=== PATIENT | female | born 1950 | race Caucasian/White ===

== ENCOUNTER 2023-11-13 14:53 | Outpatient (OUT) | payer MEDICARE, OTHER, SELFPAY ==
[2023-11-13 15:52] LABS: Basophils Percent Auto 0.8 % (0.2-2.0); Eosinophils Absolute Auto 0.1 10^3/uL (0.0-0.7); Eosinophils Percent Auto 2.3 % (0.9-7.0); Hematocrit 36.1 % (36.0-48.0); Hemoglobin 11.8 g/dL (12.0-16.0); Immature Granulocytes Abs Auto 0.04 10^3/uL (0.00-0.03); Immature Granulocytes Pct Auto 0.8 % (0.0-0.5); Lymphocytes Absolute Auto 1.2 10^3/uL (1.2-3.8); Lymphocytes Percent Auto 23.6 % (20.5-60.0); Mean Corpuscular HGB Conc 32.7 g/dL (29.9-35.2); Mean Corpuscular Hemoglobin 35.4 pg (26.7-34.0); Mean Corpuscular Volume 108.4 fL (81.0-99.0); Mean Platelet Volume 9.7 fL (9.5-13.5); Monocytes Absolute Auto 0.3 10^3/uL (0.3-0.8); Monocytes Percent Auto 6.6 % (1.7-12.0); Neutrophils Absolute Auto 3.2 10^3/uL (1.4-6.5); Neutrophils Percent Auto 65.9 % (43.0-75.0); Platelet Count 206 10^3/uL (150-450); Red Cell Distribution Width 16.7 % (11.0-15.0); White Blood Count 4.9 10^3/uL (4.0-11.0)
[2023-11-13 16:18] LABS: Red Blood Count 3.33 10^6/uL (4.20-5.40)
[2023-11-13 16:27] LABS: Estimated Average Glucose 97 mg/dL
[2023-11-13 16:46] LABS: Alanine Aminotransferase 7 U/L (14-59); Albumin Globulin Ratio 0.7; Albumin Level 2.7 g/dL (3.4-5.0); Alkaline Phosphatase 112 U/L (46-116); Anion Gap 13.3; Aspartate Amino Transferase 15 U/L (15-37); BUN Creatinine Ratio 20.5; Bilirubin Total 0.3 mg/dL (0.2-1.0); Calcium 8.5 mg/dL (8.5-10.1); Carbon Dioxide 27.3 mmol/L (21.0-32.0); Chloride 109 mmol/L (98-107); Chol HDL Ratio 3.1; Cholesterol 165 mg/dL (<=200); Estimated GFR (African America >60 (>=60); Estimated GFR (Non-African Ame >60 (>=60); Free T3 2.05 pg/mL (2.18-3.98); Globulin 3.7 g/dL; Glucose 110 mg/dL (74-106); HDL Cholesterol 54 mg/dL (40-60); Potassium 3.6 mmol/L (3.5-5.1); Sodium 146 mmol/L (136-145); Thyroid Stimulating Hormone 1.843 uIU/mL (0.358-3.740); Total Protein 6.4 g/dL (6.4-8.2); Triglycerides 193 mg/dL (<=150); VLDL CHOLESTEROL 38.6 mg/dL
[2023-11-15 11:10] LABS: Insulin 23.7 uIU/mL (2.6-24.9)
== END 2023-11-13 14:54 | disposition home or self-care (01) ==
LOC: LAB 15:05
PROVIDERS: PCP Nurse Practitioner Family; Visit Provider Nurse Practitioner Family
DX: E78.5 Hyperlipidemia, unspecified (principal); E11.9 Type 2 diabetes mellitus without complications; Z79.899 Other long term (current) drug therapy; Z12.11 Encounter for screening for malignant neoplasm of colon; D64.9 Anemia, unspecified; R53.83 Other fatigue; E55.9 Vitamin D deficiency, unspecified
CPT/HCPCS: 36415; 80053; 80061; 82306; 83036; 83525; 83540; 84436; 84443; 84481; 85025

== ENCOUNTER 2023-11-18 14:02 | Outpatient (OUT) | payer MEDICARE, OTHER, SELFPAY ==
--- NOTE | 2023-11-18 14:17 | CT_ITS ---
The [address] [address] Patient Name: DONNY JURADO MRN: [id number] date: 1950 Sex: F Assigned Patient Location: CT Current Patient Location: Accession/Order Number: [id number] Exam Date: 11/18/2023 14:14 Report Date: 11/19/2023 08:56 At the request of: GLORIA QUINTERO Procedure: CT lung screening low-dose EXAMINATION: CT lung screening low-dose HISTORY: Smoker COMPARISON: CT LUNG CANCER SCREENING 08/01/2020 TECHNIQUE: Axial, Coronal, and Sagittal images were created without the administration of IV contrast material. Dose reduction techniques were achieved by using automated exposure control and/or adjustment of mA and/or kV according to patient size and/or use of iterative reconstruction technique. FINDINGS: LUNGS: A few tiny pleural-based nodules scattered bilaterally; unchanged. No suspicious nodules, infiltrates, or significant chronic interstitial changes. PLEURA: No mass, effusion, or pneumothorax. VASCULATURE: No abnormality. NYLA: No mass or pathologic adenopathy. MEDIASTINUM: No mass or pathologic adenopathy. CARDIAC: No enlargement, pericardial thickening, or pericardial effusion. AORTA: No aneurysm or dissection. CHEST WALL: No mass or axillary adenopathy BONES: No bone lesion or fracture. LIMITED ABDOMEN: No suspicious findings. Limited images of the upper abdomen. OTHER: Negative. CT/CT lung screening low-dose IMPRESSION: 1. Lung-RADS 2- Benign Appearance or Behavior. Nodules with a very low likelihood of becoming a clinically active cancer due to size or lack of growth. Follow-up CT Chest in 1 year. Electronically authenticated by: RUBIA WILSON Date: 11/19/2023 08:56
--- NOTE | 2023-11-18 14:32 | XR_ITS ---
[address] [address] Patient Name: DONNY JURADO MRN: [id number] date: 1950 Sex: F Assigned Patient Location: CT Current Patient Location: CT Accession/Order Number: [id number] Exam Date: 11/18/2023 14:18 Report Date: 11/18/2023 15:24 At the request of: GLORIA QUINTERO Procedure: XR DEXA axial skeleton EXAMINATION: XR DEXA axial skeleton, 11/18/2023 2:18 PM EST HISTORY: Age Related Osteoporosis M81.0 COMPARISON: None. TECHNIQUE: Dual-energy X-ray absorptiometry (DEXA) bone density study performed for the axial skeleton. HISTORY: Age Related Osteoporosis M81.0 FINDINGS: Bone mineral density AP spine L1-L4 measures 0.775 g/sq cm. T score -3.4. WHO classification: Osteoporosis Lowest bone mineral density is in the right femoral trochanter measuring 0.422 g/sq cm. T score -3.7. WHO classification: Osteoporosis XR/XR DEXA axial skeleton IMPRESSION: Osteoporosis. High fracture risk Electronically authenticated by: ERYN PAGAN Date: 11/18/2023 15:24
== END 2023-11-18 14:03 | disposition home or self-care (01) ==
LOC: CT 14:02
PROVIDERS: PCP Nurse Practitioner Family; Visit Provider Nurse Practitioner Family
DX: M81.0 Age-related osteoporosis without current pathological fracture (principal); F17.200 Nicotine dependence, unspecified, uncomplicated
CPT/HCPCS: 71271; 77080

== ENCOUNTER 2023-11-26 13:46 | Outpatient (RCR) | payer MEDICARE, SELFPAY | END 2024-01-24 17:13 | disposition home or self-care (01) | LOC: PT 13:46 | PROVIDERS: PCP Nurse Practitioner Family; Visit Provider Nurse Practitioner Family | DX: M25.562 Pain in left knee (principal); M17.12 Unilateral primary osteoarthritis, left knee | CPT/HCPCS: 97110; 97112; 97161 ==

== ENCOUNTER 2024-08-02 15:36 | Emergency (ER) | payer MEDICARE, SELFPAY ==
[2024-08-02 15:40] VITALS: BP 186/100; PULSE 101; TEMP 36.5; O2SAT 98; BMI 19.1
--- OUTSIDE RECORDS SUMMARY | 2024-08-02 15:46 | XMS_ITS | CCD ---
Author Organization [facility] ion Partnership [facility] Care Team Providers Care Ranch Manager Name Role Phone ROBBY QUINTEROELA Admitting Unavailable INGRID, GLORIA Attending Unavailable INGRID, GLORIA Primary Care Unavailable INGRID, GLORIA Consulting Unavailable INGRID, GLORIA Admitting Unavailable INGRID, GLORIA Attending Unavailable INGRID, GLORIA Primary Care Unavailable INGRID, GLORIA Consulting Unavailable INGRID, GLORIA Admitting Unavailable INGRID, GLORIA Attending Unavailable INGRID, GLORIA Primary Care Unavailable INGRID, GLORIA Consulting Unavailable APLING, RUSTY B Attending Unavailable APLING, RUSTY Calle Referring Unavailable APLING, RUSTY Calle Attending Unavailable Problems Active Problems Problem Classification Problem Date Documented Da te Episodic/Chronic Deficiency and other anemia (1 source) Anemia, unspecified; Translations: [ANEMIA UNSPECIFIED] Onset: 10-17-2022 Episodic Diabetes mellitus without complication (1 source) Other abnormal glucose; Translations: [OTHER ABNORMAL GLUCOSE] Onset: 10-17-2022 Episodic Disorders of lipid metabolism (4 sources) Hyperlipidemia, unspecified; Translations: [HYPERLIPIDEMIA UNSPECIFIED] Onset: 10-12-2022 Chronic Fluid and electrolyte disorders (4 sources) Hypokalemia; Translations: [HYPOKALEMIA] Onset: 11-05-2022 Episodic Other endocrine disorders (1 source) Diabetes insipidus; Translations: [DIABETES INSIPIDUS] Onset: 10-17-2022 Chronic Unclassified (3 sources) CONTACT W/AND (SUSP) EXPOS COVID-19; Translations: [CONTACT W/AND (SUSP) EXPOS COVID-19] Onset: 11-28-2022 Past or Other Problems Problem Classification Problem Date Documented Da te Episodic/Chronic Unclassified (1 source) CONTACT W/AND (SUSP) EXPOS COVID-19; Translations: [CONTACT W/AND (SUSP) EXPOS COVID-19] Onset: 11-27-2022 Results Test Name Value Interpretation Reference Range Facility Covid-19 PCR (CVDTBH)on SARS-CoV-2 (COVID-19) RNA COLT+probe Ql (Unsp spec) Not detected Normal NOT DETECTED [facility] Comment on above: Result Comment: When diagnostic testing is negative, the possibility of a false negative should be considered in the context of a patient's recent exposures and the presence of clinical signs and symptoms consistent with SARS-CoV-2. This test is not yet approved or cleared by the [place] FDA. When there are no FDA-approved or cleared tests available, and other criteria are met, FDA can make tests available under an emergency access mechanism called an Emergency Use Authorization (EUA). The EUA for this test is supported by the Department Store Salesperson of Health and Human Service's declaration that circumstances exist to justify the emergency use of in vitro diagnostics for the detection and/or diagnosis of the virus that causes COVID-19. This EUA will remain in effect for the duration of the COVID-19 declaration justifying emergency of IVDs, unless it is terminated or revoked by the FDA (after which the test may no longer be used). Performed By: #### C VDTB #### [facility] [address] [place] [address] Dr. Concetta Milligan PROF 14(COMP METB)on 023 Albumin [Mass/Vol] 3.5 g/dL Normal 3.4-5.0 [facility] Comment on above: Performed By: #### C MP #### [facility] [address] [place] [address] Dr. Concetta Milligan Albumin/Globulin [Mass ratio] 0.9 {ratio} Normal [facility] Comment on above: Performed By: #### C MP #### [facility] [address] [place] [address] Dr. Concetta Milligan ALP [Catalytic activity/Vol] 130 U/L Critically high 46-116 [facility] Comment on above: Performed By: #### C MP #### [facility] [address] [place] [address] Dr. Concetta Milligan ALT [Catalytic activity/Vol] 13 U/L Critically low 14-59 [facility] Comment on above: Performed By: #### C MP #### [facility] [address] [address] [address] Concetta Milligan Anion gap [Moles/Vol] 15.8 mmol/L Normal [facility] Comment on above: Performed By: #### C MP #### [facility] [address] [address] [address] Concetta Milligan AST [Catalytic activity/Vol] 22 U/L Normal 15-37 [facility] Comment on above: Performed By: #### C MP #### [facility] [address] [address] [address] Concetta Milligan Bilirubin [Mass/Vol] 0.5 mg/dL Normal 0.2-1.0 [facility] Comment on above: Performed By: #### C MP #### [facility] [address] [address] [address] Concetta Milligan Calcium [Mass/Vol] 8.7 mg/dL Normal 8.5-10.1 [facility] Comment on above: Performed By: #### C MP #### [facility] [address] [address] [address] Concetta Milligan Chloride [Moles/Vol] 102 mmol/L Normal 98-107 [facility] Comment on above: Performed By: #### C MP #### [facility] [address] [address] [address] Concetta Milligan CO2 [Moles/Vol] 26.6 mmol/L Normal 21.0-32.0 [facility] Comment on above: Performed By: #### C MP #### [facility] [address] [address] [address] Concetta Milligan Creatinine [Mass/Vol] 0.87 mg/dL Normal 0.55-1.02 [facility] Comment on above: Performed By: #### C MP #### [facility] [address] [place] [address] Dr. Concetta Milligan EGFR-AF MALAYSIAN >60 Normal >=60 [facility] Comment on above: Performed By: #### C MP #### [facility] [address] [address] [address] Concetta Milligan EGFR-NON AF MALAYSIAN >60 Normal >=60 [facility] Comment on above: Performed By: #### C MP #### [facility] [address] [address] [address] Concetta Milligan Globulin (S) [Mass/Vol] 3.8 g/dL Normal [facility] Comment on above: Performed By: #### C MP #### [facility] [address] [address] [address] Concetta Milligan Glucose [Mass/Vol] 124 mg/dL Critically high 74-106 [facility] Comment on above: Performed By: #### C MP #### [facility] [address] [address] [address] Concetta Milligan Potassium [Moles/Vol] 3.4 mmol/L Critically low 3.5-5.1 [facility] Comment on above: Performed By: #### C MP #### [facility] [address] [address] [address] Concetta Milligan Protein [Mass/Vol] 7.3 g/dL Normal 6.4-8.2 [facility] Comment on above: Performed By: #### C MP #### [facility] [address] [address] [address] Concetta Milligan Sodium [Moles/Vol] 141 mmol/L Normal 136-145 [facility] Comment on above: Performed By: #### C MP #### [facility] [address] [address] [address] Concetta Milligan Urea nitrogen [Mass/Vol] 15.0 mg/dL Normal 7.0-18.0 [facility] Comment on above: Performed By: #### C MP #### [facility] [address] [address] [address] Concetta Milligan Urea nitrogen/Creatinine [Mass ratio] 17.2 mg/mg Normal [facility] Comment on above: Performed By: #### C MP #### [facility] [address] [address] [address] Concetta Milligan INSULINon 10-13-2022 Insulin 70.6 uIU/mL Critically high 2.6-24.9 [facility] Comment on above: Performed By: #### I NSULIN #### [facility] [address] [place] [address] Dr. Concetta Milligan CBC AUTO DIFFon 10-12-2022 BASO # 0.1 103/ul Normal 0.0-0.1 [facility] Comment on above: Performed By: #### C BC #### [facility] [address] [place] [address] Dr. Concetta Milligan Basophils/100 WBC (Bld) 0.7 % Normal 0.2-2.0 [facility] Comment on above: Performed By: #### C BC #### [facility] [address] [place] [address] Dr. Concetta Milligan EO # 0.1 103/ul Normal 0.0-0.7 [facility] Comment on above: Performed By: #### C BC #### [facility] [address] [place] [address] Dr. Concetta Milligan Eosinophils/100 WBC (Bld) 2.0 % Normal 0.9-7.0 [facility] Comment on above: Performed By: #### C BC #### [facility] [address] [place] [address] Dr. Concetta Milligan Erythrocyte distribution width (RBC) [Ratio] 16.1 % Critically high 11.0-15.0 [facility] Comment on above: Performed By: #### C BC #### [facility] [address] [place] [address] Dr. Concetta Milligan Hematocrit (Bld) [Volume fraction] 40.8 % Normal 36.0-48.0 [facility] Comment on above: Performed By: #### C BC #### [facility] [address] [place] [address] Dr. Concetta Milligan Hemoglobin (Bld) [Mass/Vol] 15.1 g/dL Normal 12.0-16.0 [facility] Comment on above: Performed By: #### C BC #### [facility] [address] [place] [address] Dr. Concetta Milligan IG # 0.02 10e3/ul Normal 0.00-0.03 [facility] Comment on above: Performed By: #### C BC #### [facility] [address] [place] [address] Dr. Concetta Milligan IG % 0.3 % Normal 0.0-0.5 [facility] Comment on above: Performed By: #### C BC #### [facility] [address] [place] [address] Dr. Concetta Milligan LYMPH # 1.5 103/ul Normal 1.2-3.8 [facility] Comment on above: Performed By: #### C BC #### [facility] [address] [place] [address] Dr. Concetta Milligan Lymphocytes/100 WBC (Bld) 22.0 % Normal 20.5-60.0 [facility] Comment on above: Performed By: #### C BC #### [facility] [address] [place] [address] Dr. Concetta Milligan MANUAL DIFF REQ NO Normal [facility] Comment on above: Performed By: #### C BC #### [facility] [address] [place] [address] Dr. Concetta Milligan MCH (RBC) [Entitic mass] 32.1 pg Normal 26.7-34.0 [facility] Comment on above: Performed By: #### C BC #### [facility] [address] [place] [address] Dr. Concetta Milligan MCHC (RBC) [Mass/Vol] 37.0 g/dL Critically high 29.9-35.2 [facility] Comment on above: Performed By: #### C BC #### [facility] [address] [place] [address] Dr. Concetta Milligan MCV (RBC) [Entitic vol] 86.6 fL Normal 81.0-99.0 [facility] Comment on above: Performed By: #### C BC #### [facility] [address] [place] [address] Dr. Concetta Milligan MONO # 0.4 103/ul Normal 0.3-0.8 [facility] Comment on above: Performed By: #### C BC #### [facility] [address] [place] [address] Dr. Concetta Milligan Monocytes/100 WBC (Bld) 5.8 % Normal 1.7-12.0 [facility] Comment on above: Performed By: #### C BC #### [facility] [address] [place] [address] Dr. Concetta Milligan NEUT # 4.8 103/ul Normal 1.4-6.5 [facility] Comment on above: Performed By: #### C BC #### [facility] [address] [place] [address] Dr. Concetta Milligan Neutrophils/100 WBC (Bld) 69.2 % Normal 43.0-75.0 [facility] Comment on above: Performed By: #### C BC #### [facility] [address] [place] [address] Dr. Concetta Milligan Platelet mean volume (Bld) [Entitic vol] 8.7 fL Critically low 9.5-13.5 [facility] Comment on above: Performed By: #### C BC #### [facility] [address] [place] [address] Dr. Concetta Milligan PLT 204 103/ul Normal 150-450 [facility] Comment on above: Performed By: #### C BC #### [facility] [address] [place] [address] Dr. Concetta Milligan RBC 4.71 106/ul Normal 4.20-5.40 [facility] Comment on above: Performed By: #### C BC #### [facility] [address] [place] [address] Dr. Concetta Milligan WBC 6.9 103/ul Normal 4.0-11.0 [facility] Comment on above: Performed By: #### C BC #### [facility] [address] [place] [address] Dr. Concetta Milligan FREE THYROXINE INDEX T7on FTI 2.24 Normal 1.30-4.50 [facility] Comment on above: Performed By: #### T SH, T7, CMP, LIPID #### [facility] [address] [address] [address] Concetta Milligan T3U 35.0 % Normal 30.0-39.0 [facility] Comment on above: Performed By: #### T SH, T7, CMP, LIPID #### [facility] [address] [address] [address] Concetta Milligan T4 [Mass/Vol] 6.40 ug/dL Normal 4.80-13.90 [facility] Comment on above: Performed By: #### T SH, T7, CMP, LIPID #### [facility] [address] [address] [address] Concetta Milligan GLYCOHEMOGLOBIN A1Con 2022 ADA RECOMMENDATION SEE BELOW Normal [facility] Comment on above: Result Comment: ADA RECOMMENDED LIMIT 4.0 - 6.0 ADA THERAPEUTIC TARGET < 7.0 ACTION SUGGESTED > 7.0 Performed By: #### A 1C #### [facility] [address] [place] [address] Dr. Concetta Milligan Glucose [Mass/Vol] 114 mg/dL Normal [facility] Comment on above: Performed By: #### A 1C #### [facility] [address] [place] [address] Dr. Concetta Milligan HbA1c (Bld) [Mass fraction] 5.6 % Normal 4.5-6.2 [facility] Comment on above: Performed By: #### A 1C #### [facility] [address] [address] [address] Concetta Milligan IRONon 10-12-2022 Iron [Mass/Vol] 111.0 ug/dL Normal 50.0-170.0 [facility] Comment on above: Performed By: #### I MLAA #### [facility] [address] [place] [address] Dr. Concetta Milligan LIPID PROFILEon 10-12-2022 CHOL-HDL RATIO NORM SEE BELOW Normal [facility] Comment on above: Result Comment: 3.3 - 4.4 LOW RISK 4.4 - 7.1 AVERAGE RISK 7.1 - 11.0 MODERATE RISK >11.0 HIGH RISK Performed By: #### T SH, T7, CMP, LIPID #### [facility] [address] [address] [address] Concetta Milligan Cholesterol [Mass/Vol] 153 mg/dL Normal <=200 [facility] Comment on above: Performed By: #### T SH, T7, CMP, LIPID #### [facility] [address] [address] [address] Concetta Milligan Cholesterol in HDL [Mass/Vol] 51 mg/dL Normal 40-60 [facility] Comment on above: Performed By: #### T SH, T7, CMP, LIPID #### [facility] [address] [address] [address] Concetta Milligan Cholesterol in LDL [Mass/Vol] 76.2 mg/dL Normal [facility] Comment on above: Performed By: #### T SH, T7, CMP, LIPID #### [facility] [address] [address] [address] Concetta Milligan Cholesterol.total/Cho lesterol in HDL [Mass ratio] 3.0 {ratio} Normal [facility] Comment on above: Performed By: #### T SH, T7, CMP, LIPID #### [facility] [address] [place] [address] Dr. Concetta Milligan HDL NORMAL > or = 60 mg/dl - LO W CARDIOVASCULAR RISK <40 mg/dl - HIGH CARDIOVASCULAR RISK Normal [facility] Comment on above: Performed By: #### T SH, T7, CMP, LIPID #### [facility] [address] [place] [address] Dr. Concetta Milligan LDL CALC NORMAL SEE BELOW Normal [facility] Comment on above: Result Comment: <100 mg/dl OPTIMAL 100 - 129 mg/dl NEAR OR ABOVE OPTIMAL 130 - 159 mg/dl BORDERLINE HIGH 160 - 189 mg/dl HIGH >190 mg/dl VERY HIGH Performed By: #### T SH, T7, CMP, LIPID #### [facility] [address] [address] [address] Concetta Milligan Triglyceride [Mass/Vol] 129 mg/dL Normal <=150 [facility] Comment on above: Performed By: #### T SH, T7, CMP, LIPID #### [facility] [address] [address] [address] Concetta Milligan VLDL CALC 25.8 mg/dL Normal [facility] Comment on above: Performed By: #### T SH, T7, CMP, LIPID #### [facility] [address] [address] [address] Concetta Milligan PROF 14(COMP METB)on 023 Albumin [Mass/Vol] 3.4 g/dL Normal 3.4-5.0 [facility] Comment on above: Performed By: #### T SH, T7, CMP, LIPID #### [facility] [address] [place] [address] Dr. Concetta Milligan Albumin/Globulin [Mass ratio] 0.9 {ratio} Normal [facility] Comment on above: Performed By: #### T SH, T7, CMP, LIPID #### [facility] [address] [place] [address] Dr. Concetta Milligan ALP [Catalytic activity/Vol] 128 U/L Critically high 46-116 [facility] Comment on above: Performed By: #### T SH, T7, CMP, LIPID #### [facility] [address] [address] [address] Concetta Milligan ALT [Catalytic activity/Vol] 12 U/L Critically low 14-59 [facility] Comment on above: Performed By: #### T SH, T7, CMP, LIPID #### [facility] [address] [place] [address] Dr. Concetta Milligan Anion gap [Moles/Vol] 11.2 mmol/L Normal [facility] Comment on above: Performed By: #### T SH, T7, CMP, LIPID #### [facility] [address] [place] [address] Dr. Concetta Milligan AST [Catalytic activity/Vol] 15 U/L Normal 15-37 [facility] Comment on above: Performed By: #### T SH, T7, CMP, LIPID #### [facility] [address] [address] [address] Concetta Milligan Bilirubin [Mass/Vol] 0.4 mg/dL Normal 0.2-1.0 [facility] Comment on above: Performed By: #### T SH, T7, CMP, LIPID #### [facility] [address] [address] [address] Concetta Milligan Calcium [Mass/Vol] 8.5 mg/dL Normal 8.5-10.1 [facility] Comment on above: Performed By: #### T SH, T7, CMP, LIPID #### [facility] [address] [address] [address] Concetta Milligan Chloride [Moles/Vol] 103 mmol/L Normal 98-107 [facility] Comment on above: Performed By: #### T SH, T7, CMP, LIPID #### [facility] [address] [address] [address] Concetta Milligan CO2 [Moles/Vol] 29.9 mmol/L Normal 21.0-32.0 [facility] Comment on above: Performed By: #### T SH, T7, CMP, LIPID #### [facility] [address] [address] [address] Concetta Milligan Creatinine [Mass/Vol] 0.77 mg/dL Normal 0.55-1.02 [facility] Comment on above: Performed By: #### T SH, T7, CMP, LIPID #### [facility] [address] [address] [address] Concetta Milligan EGFR-AF MALAYSIAN >60 Normal >=60 [facility] Comment on above: Performed By: #### T SH, T7, CMP, LIPID #### [facility] [address] [address] [address] Concetta Milligan EGFR-NON AF MALAYSIAN >60 Normal >=60 [facility] Comment on above: Performed By: #### T SH, T7, CMP, LIPID #### [facility] [address] [address] [address] Concetta Milligan Globulin (S) [Mass/Vol] 3.8 g/dL Normal [facility] Comment on above: Performed By: #### T SH, T7, CMP, LIPID #### [facility] [address] [address] [address] Concetta Milligan Glucose [Mass/Vol] 116 mg/dL Critically high 74-106 [facility] Comment on above: Performed By: #### T SH, T7, CMP, LIPID #### [facility] [address] [address] [address] Concetta Milligan Potassium [Moles/Vol] 3.1 mmol/L Critically low 3.5-5.1 [facility] Comment on above: Performed By: #### T SH, T7, CMP, LIPID #### [facility] [address] [address] [address] Concetta Milligan Protein [Mass/Vol] 7.2 g/dL Normal 6.4-8.2 [facility] Comment on above: Performed By: #### T SH, T7, CMP, LIPID #### [facility] [address] [address] [address] Concetta Milligan Sodium [Moles/Vol] 141 mmol/L Normal 136-145 [facility] Comment on above: Performed By: #### T SH, T7, CMP, LIPID #### [facility] [address] [address] [address] Concetta Milligan Urea nitrogen [Mass/Vol] 14.0 mg/dL Normal 7.0-18.0 [facility] Comment on above: Performed By: #### T SH, T7, CMP, LIPID #### [facility] [address] [place] [address] Dr. Concetta Milligan Urea nitrogen/Creatinine [Mass ratio] 18.2 mg/mg Normal [facility] Comment on above: Performed By: #### T SH, T7, CMP, LIPID #### [facility] [address] [place] [address] Dr. Concetta Milligan TSHon 10-12-2022 TSH 1.144 uIU/mL Normal 0.358-3.740 [facility] Comment on above: Performed By: #### T SH, T7, CMP, LIPID #### [facility] [address] [address] [address] Concetta Milligan Coding Summary.on 03-15-2020 Coding Summary. CODING DATE: 03/15/2020 FINAL [facility] STATUS: Home (Routine DC) PAYOR: Medicare ADMIT DX: REASON FOR VISIT DX: R31.0 Gross hematuria FINAL DX: PRINCIPAL: R31.0 Gross hematuria SECONDARY: PYMT PROC APC STAT DESCRIPTION DOCTOR NAME DATE NOTE: The code number assigned matches the documented diagnosis and / or procedure in the patient's chart. However, the narrative phrase printed from the coding software may appear abbreviated, or result in slightly different terminology. Coded By: Ivette Verma Date Saved: 03/15/2020 07:39 am [facility] Coding Summary.on 03-09-2020 Coding Summary. CODING DATE: 03/09/2020 FINAL [facility] STATUS: Home (Routine DC) PAYOR: Medicare APC DESCRIPTION 5372 Level 2 Urology and Related Services ADMIT DX: REASON FOR VISIT DX: R31.0 Gross hematuria FINAL DX: PRINCIPAL: R31.0 Gross hematuria SECONDARY: N39.41 Urge incontinence E11.9 Type 2 diabetes mellitus without complications I10 Essential (primary) hypertension E78.5 Hyperlipidemia, unspecified PYMT PROC APC STAT DESCRIPTION DOCTOR NAME DATE NOTE: The code number assigned matches the documented diagnosis and / or procedure in the patient's chart. However, the narrative phrase printed from the coding software may appear abbreviated, or result in slightly different terminology. Coded By: Marah Carmona Date Saved: 03/09/2020 10:40 am [facility] Consent for Treatmenton 02-21 Consent for Treatment [id number] .00CD:127 [facility] Discharge Instructionson Discharge Instructions [id number]# 1.00CD:127 [facility] History and Physicalon 03-08 History and Physical [id number]# 1.00CD:127 [facility] Inpatient Patient Summaryon 03-08-2020 Inpatient Patient Summary [address] [address] Clinical Summary Person Information Name: DONNY JURADO Age: 69 Years : 1950 Sex: Female PCP: NIURKA BEGUM MD Marital Status: Race: White Ethnicity: Non- or Language: Portuguese Visit Id: Visit Reason: GROSS HEMATURIA Speciality: Acuity: Enc Type: Outpatient Med Service: Surgery Arrival: 03/08/2020 12:23:46 Discharge: Dispo Type: Address: [address] [place] [id number] Provider Notes: Diagnosis: Colovesical fistula; Gross hematuria Problems Active Urge incontinence Gross hematuria Hyperlipidemia Hypertension Glaucoma Type 2 diabetes mellitus Arthritis Smoking Status: Functional Status: Sensory Deficits: History of Falls: Mobility Assistance Prior to Admission: ADLs: Current Level of Assistance for Self-Care/Mobility: Cognitive Status: Allergies No Known Allergies Laboratory or Other Results This Visit (last charted value for your 03/08/2020 visit) No Laboratory or Other Results This Visit Measurements: Height: 166 cm Weight: Blood Pressure: Not Valued / Not Valued BMI: Procedures No Procedures Documented Immunizations No Immunizations Documented This Visit Final Med List: atorvastatin (atorvastatin 40 mg Tab) 1 Tablets By Mouth every day. carvedilol 12.5 Milligram By Mouth 2 times a day. ciprofloxacin (Cipro 500 mg Tab) 1 Tablets By Mouth. one tab the day prior to procdure, and one tab after procedure completed. eszopiclone (eszopiclone 1 mg Tab) 1 Tablets By Mouth As Directed as needed for insomnia. insulin detemir (Levemir) 35 Units Subcutaneous once a day (in the morning). losartan (losartan 100 mg Tab) 1 Tablets By Mouth every day. timolol one gtt. Left eye every day. Care Team Members: Attending Physician: Shorty Stark MD Consulting Physician: Referring Physician: Shorty Stark MD Follow up: With: Address: When: Shorty Stark [address] [place] [address], [facility] [address], [address] [address] Business (1) , only if needed Patient Education Information: Diverticulitis [facility] IntraOperative Documentson 0 03-08-2020 IntraOperative Documents [id number]# 1.00CD:[address] [facility] IntraOperative Documents [id number]# 1.00CD:[address] [facility] Main OR Intraoperative Recor don 03-08-2020 Main OR Intraoperative Record IntraOp Document Type FTURO Summary Primary Physician: Shorty Stark MD Finalized Date/Time: 03/08/20 12:52:53 Pt. Name: DONNY JURADO Emily Nix/Sex: 1950 Female Med Rec #: [id number] Physician: Shorty Stark MD Financial #: [id number] Pt. Type: O Room/Bed: / Admit/Disch: 03/08/20 12:23:46 - Institution: Case Times FTURO Entry 1 Patient Times In Room 03/08/20 12:43:00 Out Room 03/08/20 12:57:00 Procedure Times Start 03/08/20 12:46:00 Stop 03/08/20 12:52:00 Anesthesia Times Last Modified By: Pascual QUESADA, Tammie DIAZ 03/08/20 12:50:46 Case Attendance FTURO Entry 1 Entry 2 Entry 3 Case Attendee Mi DAILY, Shorty Garner RN, JOANOR, Vida Goldstein CST Role Performed Surgeon - Primary Cap Blocker - Primary Scrub - Primary Time In 03/08/20 12:43:00 03/08/20 12:43:00 03/08/20 12:43:00 Time Out 03/08/20 12:57:00 03/08/20 12:57:00 03/08/20 12:57:00 Procedure CYSTOSCOPY LOCAL(.) CYSTOSCOPY LOCAL(.) CYSTOSCOPY LOCAL(.) Comments Last Modified By: Pascual RN, JOANOR, Pascual RN, JOANOR, Pascual QUESADA, JOE, Tammie 03/08/20 Tammie 03/08/20 Tammie 03/08/20 12:50:47 12:50:47 12:50:47 Surgical Procedures FTURO Entry 1 Procedure Description Procedure CYSTOSCOPY LOCAL Modifiers . Surgeon Description cysto Primary Procedure Yes Primary Surgeon Shorty Stark MD Start 03/08/20 12:46:00 Stop 03/08/20 12:52:00 Anesthesia Type Local Surgical Service Urology Wound Class 2 - Clean-Contaminated Last Modified By: JOE Garner RN, Ruthann 03/08/20 12:50:48 General Case Data FTURO Pre-Care Text: Classifies surgical wound, implements aseptic technique, initiates traffic control Entry 1 Case Information OR URO 1 FT Case Level None Wound Class 2 - Clean-Contaminated Specialty Urology Preop Diagnosis GROSS HEMATURIA Postop Same As Preop No Postop Diagnosis clear bladder Outcomes Met? Yes Last Modified By: JOE Garner RN, Ruthann 03/08/20 12:49:08 Post-Care Text: The patient is free from signs and symptoms of infection EU IntraOp - FTURO Pre-Care Text: Implements protective measures prior to operative or invasive procedure, confirms identity before the operative or invasive procedure, verifies operative procedure, surgical site, and laterality Entry 1 EU Perioperative Protocols Procedure(s) CYSTOSCOPY LOCAL(.) Patient Identity Birthday, ID Band Verified (select at Check, Patient least 2): Participation Consents / H and P HandP, Surgery/Procedure Operative Site N/A Verified Consent Marking Verified Surgical Site Yes Laterality Verified n/a Verified Procedure Verified Yes Correct Patient Yes Position Verified Availability Equipment, Medication Time Out Shorty Stark MD, Verified (If Participants Pascual QUESADA, JOANOR, Applicable) Angelita Cho CAR RACER, Vida Time Out Complete 03/08/20 12:45:00 Allergies Reviewed? Yes Allergies Reviewed Self/Patient With Body Position Low Lithotomy Prep Area perineal area Prep Agents Betadine Solution Skin. Condition Unable to Visualize Additional None Specimens Collected Vitals - EU Blood Pressure 100/65 Pulse 75 bpm Respirations SPO2 EBL 0 IandO - EU Total Intake 0 mL Total Output 0 mL Outcomes Met? Yes Last Modified By: JOE Garner RN, Ruthann 03/08/20 12:50:36 Post-Care Text: The patient is free from signs and symptoms of injury caused by extraneous objects Case Comments Finalized By: JOE Garner RN, Ruthann Document Signatures Signed By: JOE Garner RN, Ruthann 03/08/20 12:[address] [facility] Main OR Preoperative Recordo n 03-08-2020 Main OR Preoperative Record Holding Area Document Type FTURO Summary Primary Physician: Shorty Stark MD Finalized Date/Time: 03/08/20 12:50:09 Pt. Name: DONNY JURADO /Sex: 1950 Female Med Rec #: [id number] Physician: Shorty Stark MD Financial #: [id number] Pt. Type: O Room/Bed: / Admit/Disch: 03/08/20 12:23:46 - Institution: Case Times Holding FTURO Pre-Care Text: Verifies consent for planned procedure, identifies individual values and wishes concerning care, includes family members in perioperative teaching Secures patient's records' belongings, and valuables, maintains patient's dignity and privacy, and maintains patient confidentiality Entry 1 In Holding 03/08/20 12:31:00 Outcomes Met? Yes Last Modified By: Rosa Johnson LPN 03/08/20 12:31:44 Post-Care Text: The patient participates in decisions affecting his or her perioperative plan of care The patient's right to privacy is maintained Surgery Checklist FTURO Entry 1 Patient Birthday, ID Band Procedure Surgical Consent, With Identification: Check, Patient Verification: Patient Participation NPO after Midnight: n/a Personal Items: Cataract Lens Implant, Dentures, Glasses Personal Items lens implant left eye, Limitations: none Comment: glasses on, upper and lower dentures at home Complaints of Pain: No Skin Integrity Intact, [place], Warm, & Dry Vitals - EU Blood Pressure Pulse 76 Respirations 20 SPO2 Blood Pressure 100/66 Pulse Respirations SPO2 RN Reviewed Yes Last Modified By: JOE Garner RN, Ruthann 03/08/20 12:50:07 General Comments: temp 36.5 Finalized By: JOE Garner RN, Ruthann Document Signatures Signed By: Rosa Johnson LPN 03/08/20 12:35 Rosa Johnson LPN 03/08/20 12:35 Pascual QUESADA Tammie DIAZ 03/08/20 12:[address] [facility] Operative Reporton 0 Operative Report Patient: DONNY JURADO Age: 69 years Sex: Female : 1950 Associated Diagnoses: None Author: Shorty Stark MD Procedure Operative Information Details: Date/ Time: 03/08/2020 12:57:00. Pre-Op Dx: Gross Hematuria - R31.0, possible colovesical fistula. Post-Op Dx: resolved gross hematuria, no signs of colovesical fistula. Anesthesia Type: Local. Procedure: Local Cystoscopy. Risks/Benefits/Inform ed Consent: Surgical risks, benefits, details of the procedure have been explained to the patient, Full informed consent has been obtained. Intraoperative Information Prepped: Patient is brought back to the endoscopy suite, Patient is placed in modified dorso/lithotomy position, Patient prepped in the usual fashion with Betadine solution, 2% Xylocaine Jelly is placed per Urethra, After waiting several minutes the Cystoscope is introduced. The Urethra is: Normal. The Bladder is: Normal, Trabeculated None (0). The ureteral orifices: Show efflux of clear urine. Devices Implanted: None. Removal: Cystoscope is removed. Postoperative Information Discharge: patient wished to followup as needed.. [facility] Comment on above: Result Comment: Elec tronically Signed By: Mi DAILY, Shorty Nix\.br\Date and Time Signed: 03/08/20 12:58 EDT C Urineon 02-26-2020 Bacteria identified Cx Nom (U) Microbiology PROCEDURE: Urine Culture [R1] SOURCE: U Random BODY SITE: COLLECTED DATE/TIME: 02/24/2020 12:07 EDT RECEIVED DATE/TIME: 02/24/2020 18:36 EDT START DATE/TIME: 02/24/2020 18:36 EDT FREE TEXT SOURCE: Mi DAILY, Shorty Stark MD, Shorty Nix FINAL REPORTS Final Report [] Verified Date/Time: 02/26/2020 10:36 EDT 3,000 cfu/ml Mixed skin contaminants Performing Locations R1: This test was performed at: [facility], [address] [place] [address], [id number] , [place], [facility] Comment on above: Performed By: #### 2 [id number] #### [facility] [address] [place] [id number] Ambulatory Clinical Summaryo n 02-24-2020 Ambulatory Clinical Summary {[id number] [address] [facility] Progress Note-Physicianon Progress Note-Physician I got some results in my inbasket from [place] I was asked to sign off on. This patient does not have a scheduled followup and a brief chart review led to a clinical Dx of gross hematuria requiring CBI with a possible colovesical fistula awaiting colonoscopy with Dr. Burton for the same. Unfortunately I have a call into the help desk as I am able to see only a single progress note from my visits with Donny but several others are not visible. Regardless I am not concerned about the documentation as much as the patient so I called her. I learned her hip replacement is doing well, did not get infected and she is ambulating without a cane or a walker and doing well. She reports she has not had fevers chills or sweats and never had hematuria again since leaving [place] for the [place]. She reports that she is home and is awaiting improvement with DEVIN for her colonoscopy. I indicated I would update Dr. Burton but would still recommend she get a colonoscopy as this is important. She did report QOD bowel movements instead of daily. I indicated that she may benefit from a cystoscopy given a her ultrasound findings and her prior hematuria as rare fistula's can be caused by primary bladder pathology. That being said I was pleased that she has had no voiding complaints and no further hematuria. I indicated I would message the doctor who saw her consult but later asked me to see her as well as I was ad operations associate that day to see if he would like to do her followup cystoscopy or he would prefer I do it. Craig Stark MD [facility] Comment on above: Result Comment: Elec tronically Signed By: Mi DAILY, Shorty Nix\.br\Date and Time Signed: 12/31/19 13:29 EDT Encounters Encounter Date Encounter Type Care Provider Facility Start: 01-01-2024 End: 01-01-2024 ambulatory RUSTY Calle APLING Not Available Start: 11-13-2023 End: 11-14-2023 ambulatory RUSTY Calle APLING Not Available Start: 11-27-2022 End: 11-27-2022 ambulatory GLORIA QUINTERO Facility:[facility] Start: 11-05-2022 End: 11-06-2022 ambulatory GLORIA QUINTERO Facility:[facility] Start: 10-12-2022 End: 10-13-2022 ambulatory GLORIA QUINTERO Facility:[facility] Payers Date Payer Category Payer Medicare [id number] 1958 Private Health Insurance [id number] 1950 Unknown [id number] 2.16.84 [id number] 1950 Unknown [id number] 2.16.84 [id number] 1950 Unknown [id number] 2.16.84 [id number] 1950 Unknown [id number] 2.16.84 [id number] 1950 Unknown [id number] 2.16.84 [id number] 1950 Unknown [id number] 2.16.84 [id number] Summary Purpose Family History No Family History Records FoundNo Family History Records FoundNo Family History Records Found Advance Directives No Advanced Directives Records FoundNo Advanced Directives Records FoundNo Advanced Directives Records Found Additional Source Comments INFORMATION SOURCE (unrecogn ized section and content) DATE CREATED AUTHOR [facility]/10/2020 [facility] DATE CREATED AUTHOR AUTHOR'S ORGANIZ ATION 11/29/2022 [facility] DATE CREATED AUTHOR AUTHOR'S ORGANIZ ATION 01/02/2024 [facility] EPIC FOR RECORDS PERTAINING TO PATIENTS WHO ARE OR HAVE BEEN ENROLLED IN A CHEMICAL DEPENDENCY/SUBSTANCEABUSE PROGRAM, SOME INFORMATION MAY BE OMITTED. This clinical summary was aggregated from multiple sources. Caution should be exercised in using it in the provision of clinical care. This summary normalizes information from multiple sources, and as a consequence, information in this document may materially change the coding, format and clinical context of patient data. In addition, data may be omitted in some cases. CLINICAL DECISIONS SHOULD BE BASED ON THE PRIMARY CLINICAL RECORDS. [facility]. provides no warranty or guarantee of the accuracy or completeness of information in this document.
--- NOTE | 2024-08-02 15:49 | XR_ITS ---
The [place] [id number] Patient Name: DONNY JURADO MRN: [id number] date: 1950 Sex: F Assigned Patient Location: ER Current Patient Location: ED.MAIN Accession/Order Number: [id number] Exam Date: 08/02/2024 16:10 Report Date: 08/02/2024 16:41 At the request of: KRAIG CONTRERAS Procedure: XR wrist LT min 3V Exam: Radiographs: XR wrist LT min 3V Reason for exam: pain Comparison: None XR/XR wrist LT min 3V IMPRESSION: Acute minimally displaced, impacted dorsally angulated fracture of the distal left radial metaphysis. Acute displaced fracture of the ulnar styloid. Associated soft tissue swelling. Degenerative changes throughout the left wrist, most evident at the first CMC and multangular joints. Remainder of the left wrist radiographs is unremarkable. Electronically authenticated by: BIA GONZALEZ Date: 08/02/2024 16:41
--- NOTE | 2024-08-02 15:53 | ED.UPPEXIN1 ---
HPI HPI - Extremity Injury (Upper) General Chief Complaint: Extremity Injury, Upper Stated Complaint: UPPER LEFT EXTREMITY INJURY Time Seen by Provider: 08/02/24 15:47 Source: patient Mode of arrival: walk-in History of Present Illness HPI narrative: Patient is a 73-year-old [id number] who presents to the ER with concerns of left wrist pain. States she is right-hand dominant, on Saturday she picked up a 12 pack a pop from the bottom shelf and it swung back and struck her arm. Patient states she has had bruising under the skin and small skin tear that is now healing. Patient does not believe she had any fall or trauma but then on further question that she could have fallen on her wrist during the night and not remembered it. Patient has notable tenderness to the left wrist and pain on range of motion. Patient denies any pain to the distal hand or elbow. MD complaint: injury to: Reports left and wrist Other Extremity Injury: Left: wrist Hand dominance: right Place: Reports other (store) Relieving factors: Reports none Exacerbating factors: Reports none Associated symptoms: Reports denies other symptoms Related Data Allergies Allergy/AdvReac Type Severity Reaction Status Date / Time No Known Drug Allergies Allergy Verified 08/02/24 15:46 Opioid HPI Opioid Management Most Recent Pain and Opioid Data: No Data to Display Review of Systems ROS Constitutional Denies: fever or chills Eyes Denies: change in vision Ears, nose, mouth, and throat Denies: throat pain or neck pain Cardiovascular Denies: chest pain or palpitations Respiratory Denies: shortness of breath or cough Gastrointestinal Denies: abdominal pain Musculoskeletal Reports: extremity pain (left wrist); Denies: back pain or neck pain Psychiatric Denies: anxiety Hematologic/Lymphatic Reports: easy bruising (note on forearms from incidental trauma) Allergic/Immunologic Denies: hives PFSH PFSH Social History Little interest or pleasure in doing things: not at all Feeling down, depressed, or hopeless: not at all Exam Narrative Exam Narrative: Nurse's notes and vital signs reviewed. Patient is not hypoxic. General: The patient appears well and in no apparent distress. Patient is resting comfortably on cart. Skin: Warm, dry, no pallor noted. Evidence of laceration, healing abrasion noted to the dorsal distal forearm. Bruising pattern does not match that of a skin tear. Head: Normocephalic, atraumatic Eye: Normal conjunctiva Respiratory: Patient is in no distress Musculoskeletal: The left wrist shows no obvious deformity. moderate bruising without hematoma to forearm. There was minimal swelling noted. The patient had limited ROM due to pain at wrist joint, CMC joint nontender, but noted for arthritis The patient had tenderness noted to the radius. The patient had no tenderness in the anatomical snuff box. The patient had no pain with axial loading of the thumb. Pulses are intact at brachial and radial 2+. There was no deficit at the elbow or shoulder. The patient has normal capillary refill to all distal digits. The patient has no evidence of cyanosis or mottling. The patient is able to flex and extend all digits without difficulty. Neurological: A&O x4, normal sensory, normal motor Psychiatric: Cooperative Constitutional Vital Signs, click to edit/add: Last Vital Signs Temp 97.7 F 08/02/24 15:40 Pulse 101 H 08/02/24 15:40 Resp 16 08/02/24 15:40 BP 186/100 H 08/02/24 15:40 Pulse Ox 98 08/02/24 15:40 Course Vital Signs Vital signs: Vital Signs Temperature 97.7 F 08/02/24 15:40 Pulse Rate 101 H 08/02/24 15:40 Respiratory Rate 16 08/02/24 15:40 Blood Pressure 186/100 H 08/02/24 15:40 Pulse Oximetry 98 08/02/24 15:40 Temperature 97.7 F 08/02/24 15:40 Pulse Rate 101 H 08/02/24 15:40 Respiratory Rate 16 08/02/24 15:40 Blood Pressure 186/100 H 08/02/24 15:40 Pulse Oximetry 98 08/02/24 15:40 MDM - Extremity Injury (Upper) MDM Narrative Medical decision making narrative: Patient thought wrist pain started when she picked up a pack of pop, however she has bruising and pain notable to the wrist joint without visible deformity it patient made a comment that she may have fallen during her sleep. Patient had ice pack applied. She declined Tylenol it does not work for me. Advised that we would get an x-ray first to further evaluation. Ordered [place] for pain, reviewed x-ray noted for slightly displaced and angulated distal radius fracture and ulnar styloid fracture. Patient will need orthopedics follow-up. I contacted Dr. Alston who is agreeable to see the patient on Saturday at 11:30 AM management. Patient was educated to ice and elevate the left upper extremity, she has not any blood thinners but does take medication for hypertension. She does have a friend assisting her at the bedside. The patient is to followup with Dr. Alston Tomorrow at 11:30 am . primary care physician in next 2-3 days or to return to the emergency department should any of the signs or symptoms worsen or new symptoms develop. Patient had questions answered. The patient agrees with the following Diagnosis and Treatment plan and the patient will be discharged home. Discharge Plan Discharge Chief Complaint: Extremity Injury, Upper Clinical Impression: Fracture of wrist Patient Disposition: Home, Self-Care Time of Disposition Decision: 16:33 Condition: Good Print Language: Belgian Instructions: Wrist Fracture in Adults (ED) Additional Instructions: Ice and elevate, please arrive 15-20 mins before your appt with Dr. Alston tomorrow at 11:30 am Referrals: GLORIA QUINTERO [Primary Care Provider] - 1 week Orlando Alston MD [Physician] - 08/03/24 11:30 am Procedures ED Ortho Splinting/Casting Orthopedic Splinting/Casting Injury #1: Additional comments: Splint Application: The patient was placed in a left volar wrist splint with Orthoglass splint material, 4 inch. The patient had 2 rolls of the web roll applied to the affected site. Patient then had the splint material placed with felt side against web roll and skin. The patient had the splint secured in place with marion bandage. The patient was neurovascularly intact post application of the splint.
[2024-08-02] MEDS: HYDROCODONE/ACET 5-325 MG TABLET 1 TAB PO (16:39)
[2024-08-02] MEDS: HYDROCODONE/ACET 5-325 MG TABLET 2 TAB PO (16:39)
[2024-08-02 16:51] VITALS: BP 174/102
== END 2024-08-02 16:53 | disposition home or self-care (01) ==
PROVIDERS: Emergency Provider Emergency Medicine; PCP Nurse Practitioner Family
DX: S52.502A Unspecified fracture of the lower end of left radius, initial encounter for closed fracture (principal); S52.612A Displaced fracture of left ulna styloid process, initial encounter for closed fracture; X58.XXXA Exposure to other specified factors, initial encounter
CPT/HCPCS: 29125; 73110; 99283

== ENCOUNTER 2024-08-10 11:53 | Outpatient (OUT) | payer MEDICARE, SELFPAY ==
--- NOTE | 2024-08-10 | XR_ITS ---
[facility] [place] [id number] Patient Name: DONNY JURADO MRN: [id number] date: 1950 Sex: F Assigned Patient Location: Current Patient Location: Accession/Order Number: [id number] Exam Date: 08/10/2024 11:54 Report Date: 08/11/2024 06:03 At the request of: RUBIA MICHELE Procedure: XR wrist LT min 3V 3 views of the left wrist INDICATION: Pain COMPARISON: 08/02/2024 XR/XR wrist LT min 3V IMPRESSION: Healing distal radius and ulna fractures. Scattered moderate to severe degenerative changes. Joint alignment is intact. Soft tissues grossly unremarkable. Electronically authenticated by: URI KING Date: 08/11/2024 06:03
== END 2024-08-10 11:54 | disposition home or self-care (01) ==
LOC: EC 11:53
PROVIDERS: PCP Nurse Practitioner Family; Visit Provider Orthopaedic Surgery
DX: S52.552D Other extraarticular fracture of lower end of left radius, subsequent encounter for closed fracture with routine healing (principal); S52.692D Other fracture of lower end of left ulna, subsequent encounter for closed fracture with routine healing
CPT/HCPCS: 73110

== ENCOUNTER 2024-08-17 10:59 | Outpatient (OUT) | payer MEDICARE, SELFPAY ==
--- NOTE | 2024-08-17 | XR_ITS ---
The [address] [address] Patient Name: DONNY JURADO MRN: [id number] date: 1950 Sex: F Assigned Patient Location: Current Patient Location: Accession/Order Number: [id number] Exam Date: 08/17/2024 11:10 Report Date: 08/19/2024 15:06 At the request of: RUBIA MICHELE Procedure: XR wrist LT min 3V PROCEDURE: XR wrist LT min 3V HISTORY: LEFT WRIST PAIN COMPARISON: XR wrist left 08/10/2024 FINDINGS: BONES:Marked degenerative changes of the wrist. Prior comminuted fracture of distal radius and prior ulnar styloid process fracture. Suspect slight callus formation along the margins. SOFT TISSUES:Images were obtained to cast material which limits evaluation. EFFUSION:None visible. OTHER: Negative. XR/XR wrist LT min 3V IMPRESSION: 1. Stable alignment and suspected ongoing early bone healing of distal radius and ulna fractures. 2. Marked degenerative changes of the wrist. Electronically authenticated by: RUBIA WILSON Date: 08/19/2024 15:06
--- OUTSIDE RECORDS SUMMARY | 2024-08-17 11:02 | XMS_ITS | CCD ---
Author Organization [facility] ion Partnership [facility] Care Team Providers Care Director Operations Name Role Phone ROBBY QUINTEROELA Admitting Unavailable INGRID, GLORIA Attending Unavailable INGRID, GLORIA Primary Care Unavailable INGRID, GLORIA Consulting Unavailable INGRID, GLORIA Admitting Unavailable INGRID, GLORIA Attending Unavailable INGRID, GLORIA Primary Care Unavailable INGRID, GLORIA Consulting Unavailable INGRID, GLORIA Admitting Unavailable INGRID, GLORIA Attending Unavailable INGRID, GLORIA Primary Care Unavailable INGRID, GLORIA Consulting Unavailable APLING, RUSTY B Attending Unavailable APLING, RUSTY aClle Referring Unavailable APLING, RUSTY Calle Attending Unavailable [...] (Unsp spec) Not detected Normal NOT DETECTED [facility] Comment on above: Result Comment: When [...] for this test is supported by the Jack Spooler Tender of Health and Human Service's declaration that [...] used). Performed By: #### C VDTB #### [facility] [address] [place] [address] Dr. Concetta Milligan PROF 14(COMP METB)on 023 Albumin [Mass/Vol] 3.5 g/dL Normal 3.4-5.0 [facility] Comment on above: Performed By: #### C MP #### [facility] [address] [place] [address] Dr. Concetta Milligan Albumin/Globulin [Mass ratio] 0.9 {ratio} Normal [facility] Comment on above: Performed By: #### C MP #### [facility] [address] [place] [address] Dr. Concetta Milligan ALP [Catalytic activity/Vol] 130 U/L Critically high 46-116 [facility] Comment on above: Performed By: #### C MP #### [facility] [address] [place] [address] Dr. Concetta Milligan ALT [Catalytic activity/Vol] 13 U/L Critically low 14-59 [facility] Comment on above: Performed By: #### C MP #### [facility] [address] [address] [address] Concetta Milligan Anion gap [Moles/Vol] 15.8 mmol/L Normal [facility] Comment on above: Performed By: #### C MP #### [facility] [address] [address] [address] Concetta Milligan AST [Catalytic activity/Vol] 22 U/L Normal 15-37 [facility] Comment on above: Performed By: #### C MP #### [facility] [address] [address] [address] Concetta Milligan Bilirubin [Mass/Vol] 0.5 mg/dL Normal 0.2-1.0 [facility] Comment on above: Performed By: #### C MP #### [facility] [address] [address] [address] Concetta Milligan Calcium [Mass/Vol] 8.7 mg/dL Normal 8.5-10.1 [facility] Comment on above: Performed By: #### C MP #### [facility] [address] [address] [address] Concetta Milligan Chloride [Moles/Vol] 102 mmol/L Normal 98-107 [facility] Comment on above: Performed By: #### C MP #### [facility] [address] [address] [address] Concetta Milligan CO2 [Moles/Vol] 26.6 mmol/L Normal 21.0-32.0 [facility] Comment on above: Performed By: #### C MP #### [facility] [address] [address] [address] Concetta Milligan Creatinine [Mass/Vol] 0.87 mg/dL Normal 0.55-1.02 [facility] Comment on above: Performed By: #### C MP #### [facility] [address] [place] [address] Dr. Concetta Milligan EGFR-AF [place]THER[place] >60 Normal >=60 [facility] Comment on above: Performed By: #### C MP #### [facility] [address] [address] [address] Concetta Milligan EGFR-NON AF [place] >60 Normal >=60 [facility] Comment on above: Performed By: #### C MP #### [facility] [address] [address] [address] Concetta Milligan Globulin (S) [Mass/Vol] 3.8 g/dL Normal [facility] Comment on above: Performed By: #### C MP #### [facility] [address] [address] [address] Concetta Milligan Glucose [Mass/Vol] 124 mg/dL Critically high 74-106 [facility] Comment on above: Performed By: #### C MP #### [facility] [address] [address] [address] Concetta Milligan Potassium [Moles/Vol] 3.4 mmol/L Critically low 3.5-5.1 [facility] Comment on above: Performed By: #### C MP #### [facility] [address] [address] [address] Concetta Milligan Protein [Mass/Vol] 7.3 g/dL Normal 6.4-8.2 [facility] Comment on above: Performed By: #### C MP #### [facility] [address] [address] [address] Concetta Milligan Sodium [Moles/Vol] 141 mmol/L Normal 136-145 [facility] Comment on above: Performed By: #### C MP #### [facility] [address] [address] [address] Concetta Milligan Urea nitrogen [Mass/Vol] 15.0 mg/dL Normal 7.0-18.0 [facility] Comment on above: Performed By: #### C MP #### [facility] [address] [address] [address] Concetta Milligan Urea nitrogen/Creatinine [Mass ratio] 17.2 mg/mg Normal [facility] Comment on above: Performed By: #### C MP #### [facility] [address] [address] [address] Concetta Milligan INSULINon 10-13-2022 Insulin 70.6 uIU/mL Critically high 2.6-24.9 [facility] Comment on above: Performed By: #### I NSULIN #### [facility] [address] [place] [address] Dr. Concetta Milligan CBC AUTO DIFFon 10-12-2022 BASO # 0.1 103/ul Normal 0.0-0.1 [facility] Comment on above: Performed By: #### C BC #### [facility] [address] [place] [address] Dr. Concetta Milligan Basophils/100 WBC (Bld) 0.7 % Normal 0.2-2.0 [facility] Comment on above: Performed By: #### C BC #### [facility] [address] [place] [address] Dr. Concetta Milligan EO # 0.1 103/ul Normal 0.0-0.7 [facility] Comment on above: Performed By: #### C BC #### [facility] [address] [place] [address] Dr. Concetta Milligan Eosinophils/100 WBC (Bld) 2.0 % Normal 0.9-7.0 [facility] Comment on above: Performed By: #### C BC #### [facility] [address] [place] [address] Dr. Concetta Milligan Erythrocyte distribution width (RBC) [Ratio] 16.1 % Critically high 11.0-15.0 [facility] Comment on above: Performed By: #### C BC #### [facility] [address] [place] [address] Dr. Concetta Milligan Hematocrit (Bld) [Volume fraction] 40.8 % Normal 36.0-48.0 [facility] Comment on above: Performed By: #### C BC #### [facility] [address] [place] [address] Dr. Concetta Milligan Hemoglobin (Bld) [Mass/Vol] 15.1 g/dL Normal 12.0-16.0 [facility] Comment on above: Performed By: #### C BC #### [facility] [address] [place] [address] Dr. Concetta Milligan IG # 0.02 10e3/ul Normal 0.00-0.03 [facility] Comment on above: Performed By: #### C BC #### [facility] [address] [place] [address] Dr. Concetta Milligan IG % 0.3 % Normal 0.0-0.5 [facility] Comment on above: Performed By: #### C BC #### [facility] [address] [place] [address] Dr. Concetta Milligan LYMPH # 1.5 103/ul Normal 1.2-3.8 [facility] Comment on above: Performed By: #### C BC #### [facility] [address] [place] [address] Dr. Concetta Milligan Lymphocytes/100 WBC (Bld) 22.0 % Normal 20.5-60.0 [facility] Comment on above: Performed By: #### C BC #### [facility] [address] [place] [address] Dr. Concetta Milligan MANUAL DIFF REQ NO Normal [facility] Comment on above: Performed By: #### C BC #### [facility] [address] [place] [address] Dr. Concetta Milligan MCH (RBC) [Entitic mass] 32.1 pg Normal 26.7-34.0 [facility] Comment on above: Performed By: #### C BC #### [facility] [address] [place] [address] Dr. Concetta Milligan MCHC (RBC) [Mass/Vol] 37.0 g/dL Critically high 29.9-35.2 [facility] Comment on above: Performed By: #### C BC #### [facility] [address] [place] [address] Dr. Concetta Milligan MCV (RBC) [Entitic vol] 86.6 fL Normal 81.0-99.0 [facility] Comment on above: Performed By: #### C BC #### [facility] [address] [place] [address] Dr. Concetta Milligan MONO # 0.4 103/ul Normal 0.3-0.8 [facility] Comment on above: Performed By: #### C BC #### [facility] [address] [place] [address] Dr. Concetta Milligan Monocytes/100 WBC (Bld) 5.8 % Normal 1.7-12.0 [facility] Comment on above: Performed By: #### C BC #### [facility] [address] [place] [address] Dr. Concetta Milligan NEUT # 4.8 103/ul Normal 1.4-6.5 [facility] Comment on above: Performed By: #### C BC #### [facility] [address] [place] [address] Dr. Concetta Milligan Neutrophils/100 WBC (Bld) 69.2 % Normal 43.0-75.0 [facility] Comment on above: Performed By: #### C BC #### [facility] [address] [place] [address] Dr. Concetta Milligan Platelet mean volume (Bld) [Entitic vol] 8.7 fL Critically low 9.5-13.5 [facility] Comment on above: Performed By: #### C BC #### [facility] [address] [place] [address] Dr. Concetta Milligan PLT 204 103/ul Normal 150-450 [facility] Comment on above: Performed By: #### C BC #### [facility] [address] [place] [address] Dr. Concetta Milligan RBC 4.71 106/ul Normal 4.20-5.40 [facility] Comment on above: Performed By: #### C BC #### [facility] [address] [place] [address] Dr. Concetta Milligan WBC 6.9 103/ul Normal 4.0-11.0 [facility] Comment on above: Performed By: #### C BC #### [facility] [address] [place] [address] Dr. Concetta Milligan FREE THYROXINE INDEX T7on FTI 2.24 Normal 1.30-4.50 [facility] Comment on above: Performed By: #### T SH, T7, CMP, LIPID #### [facility] [address] [address] [address] Concetta Milligan T3U 35.0 % Normal 30.0-39.0 [facility] Comment on above: Performed By: #### T SH, T7, CMP, LIPID #### [facility] [address] [address] [address] Concetta Milligan T4 [Mass/Vol] 6.40 ug/dL Normal 4.80-13.90 [facility] Comment on above: Performed By: #### T SH, T7, CMP, LIPID #### [facility] [address] [address] [address] Concetta Milligan GLYCOHEMOGLOBIN A1Con 2022 ADA RECOMMENDATION SEE BELOW Normal [facility] Comment on above: Result Comment: ADA RECOMMENDED LIMIT 4.0 - 6.0 ADA THERAPEUTIC TARGET < 7.0 ACTION SUGGESTED > 7.0 Performed By: #### A 1C #### [facility] [address] [place] [address] Dr. Concetta Milligan Glucose [Mass/Vol] 114 mg/dL Normal [facility] Comment on above: Performed By: #### A 1C #### [facility] [address] [place] [address] Dr. Concetta Milligan HbA1c (Bld) [Mass fraction] 5.6 % Normal 4.5-6.2 [facility] Comment on above: Performed By: #### A 1C #### [facility] [address] [address] [address] Concetta Milligan IRONon 10-12-2022 Iron [Mass/Vol] 111.0 ug/dL Normal 50.0-170.0 [facility] Comment on above: Performed By: #### I MALA #### [facility] [address] [place] [address] Dr. Concetta Milligan LIPID PROFILEon 10-12-2022 CHOL-HDL RATIO NORM SEE BELOW Normal [facility] Comment on above: Result Comment: 3.3 - 4.4 LOW RISK 4.4 - 7.1 AVERAGE RISK 7.1 - 11.0 MODERATE RISK >11.0 HIGH RISK Performed By: #### T SH, T7, CMP, LIPID #### [facility] [address] [address] [address] Concetta Milligan Cholesterol [Mass/Vol] 153 mg/dL Normal <=200 [facility] Comment on above: Performed By: #### T SH, T7, CMP, LIPID #### [facility] [address] [address] [address] Concetta Milligan Cholesterol in HDL [Mass/Vol] 51 mg/dL Normal 40-60 [facility] Comment on above: Performed By: #### T SH, T7, CMP, LIPID #### [facility] [address] [address] [address] Concetta Milligan Cholesterol in LDL [Mass/Vol] 76.2 mg/dL Normal [facility] Comment on above: Performed By: #### T SH, T7, CMP, LIPID #### [facility] [address] [address] [address] Concetta Milligan Cholesterol.total/Cho lesterol in HDL [Mass ratio] 3.0 {ratio} Normal [facility] Comment on above: Performed By: #### T SH, T7, CMP, LIPID #### [facility] [address] [place] [address] Dr. Concetta Milligan HDL NORMAL > or = 60 mg/dl - LO W CARDIOVASCULAR RISK <40 mg/dl - HIGH CARDIOVASCULAR RISK Normal [facility] Comment on above: Performed By: #### T SH, T7, CMP, LIPID #### [facility] [address] [place] [address] Dr. Concetta Milligan LDL CALC NORMAL SEE BELOW Normal [facility] Comment on above: Result Comment: <100 mg/dl OPTIMAL 100 - 129 mg/dl NEAR OR ABOVE OPTIMAL 130 - 159 mg/dl BORDERLINE HIGH 160 - 189 mg/dl HIGH >190 mg/dl VERY HIGH Performed By: #### T SH, T7, CMP, LIPID #### [facility] [address] [address] [address] Concetta Milligan Triglyceride [Mass/Vol] 129 mg/dL Normal <=150 [facility] Comment on above: Performed By: #### T SH, T7, CMP, LIPID #### [facility] [address] [address] [address] Concetta Milligan VLDL CALC 25.8 mg/dL Normal [facility] Comment on above: Performed By: #### T SH, T7, CMP, LIPID #### [facility] [address] [address] [address] Concetta Milligan PROF 14(COMP METB)on 023 Albumin [Mass/Vol] 3.4 g/dL Normal 3.4-5.0 [facility] Comment on above: Performed By: #### T SH, T7, CMP, LIPID #### [facility] [address] [place] [address] Dr. Concetta Milligan Albumin/Globulin [Mass ratio] 0.9 {ratio} Normal [facility] Comment on above: Performed By: #### T SH, T7, CMP, LIPID #### [facility] [address] [place] [address] Dr. Concetta Milligan ALP [Catalytic activity/Vol] 128 U/L Critically high 46-116 [facility] Comment on above: Performed By: #### T SH, T7, CMP, LIPID #### [facility] [address] [address] [address] Concetta Milligan ALT [Catalytic activity/Vol] 12 U/L Critically low 14-59 [facility] Comment on above: Performed By: #### T SH, T7, CMP, LIPID #### [facility] [address] [place] [address] Dr. Concetta Milligan Anion gap [Moles/Vol] 11.2 mmol/L Normal [facility] Comment on above: Performed By: #### T SH, T7, CMP, LIPID #### [facility] [address] [place] [address] Dr. Concetta Milligan AST [Catalytic activity/Vol] 15 U/L Normal 15-37 [facility] Comment on above: Performed By: #### T SH, T7, CMP, LIPID #### [facility] [address] [address] [address] Concetta Milligan Bilirubin [Mass/Vol] 0.4 mg/dL Normal 0.2-1.0 [facility] Comment on above: Performed By: #### T SH, T7, CMP, LIPID #### [facility] [address] [address] [address] Concetta Milligan Calcium [Mass/Vol] 8.5 mg/dL Normal 8.5-10.1 [facility] Comment on above: Performed By: #### T SH, T7, CMP, LIPID #### [facility] [address] [address] [address] Concetta Milligan Chloride [Moles/Vol] 103 mmol/L Normal 98-107 [facility] Comment on above: Performed By: #### T SH, T7, CMP, LIPID #### [facility] [address] [address] [address] Concetta Milligan CO2 [Moles/Vol] 29.9 mmol/L Normal 21.0-32.0 [facility] Comment on above: Performed By: #### T SH, T7, CMP, LIPID #### [facility] [address] [address] [address] Concetta Milligan Creatinine [Mass/Vol] 0.77 mg/dL Normal 0.55-1.02 [facility] Comment on above: Performed By: #### T SH, T7, CMP, LIPID #### [facility] [address] [address] [address] Concetta Milligan EGFR-AF [place] >60 Normal >=60 [facility] Comment on above: Performed By: #### T SH, T7, CMP, LIPID #### [facility] [address] [address] [address] Concetta Milligan EGFR-NON AF [place] >60 Normal >=60 [facility] Comment on above: Performed By: #### T SH, T7, CMP, LIPID #### [facility] [address] [address] [address] Concetta Milligan Globulin (S) [Mass/Vol] 3.8 g/dL Normal [facility] Comment on above: Performed By: #### T SH, T7, CMP, LIPID #### [facility] [address] [address] [address] Concetta Milligan Glucose [Mass/Vol] 116 mg/dL Critically high 74-106 [facility] Comment on above: Performed By: #### T SH, T7, CMP, LIPID #### [facility] [address] [address] [address] Concetta Milligan Potassium [Moles/Vol] 3.1 mmol/L Critically low 3.5-5.1 [facility] Comment on above: Performed By: #### T SH, T7, CMP, LIPID #### [facility] [address] [address] [address] Concetta Milligan Protein [Mass/Vol] 7.2 g/dL Normal 6.4-8.2 [facility] Comment on above: Performed By: #### T SH, T7, CMP, LIPID #### [facility] [address] [address] [address] Concetta Milligan Sodium [Moles/Vol] 141 mmol/L Normal 136-145 [facility] Comment on above: Performed By: #### T SH, T7, CMP, LIPID #### [facility] [address] [address] [address] Concetta Milligan Urea nitrogen [Mass/Vol] 14.0 mg/dL Normal 7.0-18.0 [facility] Comment on above: Performed By: #### T SH, T7, CMP, LIPID #### [facility] [address] [place] [address] Dr. Concetta Milligan Urea nitrogen/Creatinine [Mass ratio] 18.2 mg/mg Normal [facility] Comment on above: Performed By: #### T SH, T7, CMP, LIPID #### [facility] [address] [place] [address] Dr. Concetta Milligan TSHon 10-12-2022 TSH 1.144 uIU/mL Normal 0.358-3.740 [facility] Comment on above: Performed By: #### T SH, T7, CMP, LIPID #### [facility] [address] [address] [address] Concetta Milligan Coding Summary.on 03-15-2020 Coding Summary. CODING DATE: 03/15/2020 FINAL [facility] STATUS: Home (Routine DC) PAYOR: Medicare ADMIT [...] Ivette Verma Date Saved: 03/15/2020 07:39 am [facility] Coding Summary.on 03-09-2020 Coding Summary. CODING DATE: 03/09/2020 FINAL [facility] STATUS: Home (Routine DC) PAYOR: Medicare APC [...] Marah Carmona Date Saved: 03/09/2020 10:40 am [facility] Consent for Treatmenton 02-21 Consent for Treatment [id number] .00CD:127 [facility] Discharge Instructionson Discharge Instructions [id number]# 1.00CD:127 [facility] History and Physicalon 03-08 History and Physical [id number]# 1.00CD:127 [facility] Inpatient Patient Summaryon 03-08-2020 Inpatient Patient Summary [address] [address] Clinical Summary Person Information Name: DONNY JURADO Age: 69 Years : 1950 Sex: Female PCP: NIURKA BEGUM MD Marital Status: Race: White Ethnicity: Non- or Language: Syrian Visit Id: Visit Reason: GROSS HEMATURIA Speciality: Acuity: Enc Type: Outpatient Med Service: Surgery Arrival: 03/08/2020 12:23:46 Discharge: Dispo Type: Address: [address] [place] [address] [id number] Provider Notes: Diagnosis: Colovesical fistula; Gross hematuria [...] Follow up: With: Address: When: Shorty Stark [address] [place] [address], [facility] [address], [address] [address] Business (1) , only if needed Patient Education Information: Diverticulitis Normal [facility] IntraOperative Documentson 0 03-08-2020 IntraOperative Documents [id number]# 1.00CD:127 Normal [facility] IntraOperative Documents [id number]# 1.00CD:127 Normal [facility] Main OR Intraoperative Recor don 03-08-2020 Main OR Intraoperative Record IntraOp Document Type FTURO Summary Primary Physician: Shorty Stark MD Finalized Date/Time: 03/08/20 12:52:53 Pt. Name: DONNY JURADO Emily Nix/Sex: 1950 Female Med Rec #: [id number] Physician: Shorty Stark MD Financial #: [id number] Pt. Type: O Room/Bed: / Admit/Disch: 03/08/20 [...] Goldstein CST Role Performed Surgeon - Primary Fish Farm Manager - Primary Scrub - Primary Time In [...] Participants Pascual QUESADA, JOANOR, Applicable) Angelita Cho TERMITE TREATER HELPER, [place] Time Out Complete 03/08/20 12:45:00 Allergies [...] JOE Garner RN, Ruthann 03/08/20 12:52 Normal [facility] Main OR Preoperative Recordo n 03-08-2020 Main OR Preoperative Record Holding Area Document Type FTURO Summary Primary Physician: Shorty Stark MD Finalized Date/Time: 03/08/20 12:50:09 Pt. Name: DONNY JURADO /Sex: 1950 Female Med Rec #: [id number] Physician: Shorty Stark MD Financial #: [id number] Pt. Type: O Room/Bed: / Admit/Disch: 03/08/20 [...] Complaints of Pain: No Skin Integrity Intact, [place], Warm, & Dry Vitals - EU Blood Pressure Pulse 76 Respirations 20 SPO2 Blood Pressure 100/66 Pulse Respirations SPO2 RN Reviewed Yes Last Modified By: JOE Garner RN, Ruthann 03/08/20 12:50:07 General Comments: temp 36.5 Finalized By: JOE Garner RN, Ruthann Document Signatures Signed By: Rosa Johnson LPN 03/08/20 12:35 Rosa Johnson LPN 03/08/20 12:35 Pascual QUESADA Tammie DIAZ 03/08/20 12:50 Normal [facility] Operative Reporton 0 Operative Report Patient: DONNY [...] patient wished to followup as needed.. Normal [facility] Comment on above: Result Comment: Elec tronically [...] Locations R1: This test was performed at: [facility], [address] [place] [address], [id number] , [place], Normal [facility] Comment on above: Performed By: #### [id number] #### [facility] [address] [place] [id number] Ambulatory Clinical Summaryo n 02-24-2020 Ambulatory Clinical Summary {[id number]}CD:[id number] Normal [facility] Progress Note-Physicianon Progress Note-Physician I got some results in my inbasket from [place] I was asked to sign off on. [...] and never had hematuria again since leaving [place] for the [place]. 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 Craig Stark MD [facility] Comment on above: Result Comment: Elec tronically [...] Facility:[facility]1 Payers Date Payer Category Payer Medicare [id number] 1959 Private Health Insurance [id number] 1950 Unknown [id number] 2.16.84 [id number] 1950 Unknown [id number] 2.16.84 [id number] 1950 Unknown [id number] 2.16.84 [id number] 1950 Unknown [id number] 2.16.84 [id number] 1950 Unknown [id number] 2.16.84 [id number] 1950 Unknown [id number] 2.16.84 [id number] Summary Purpose Family History No Family History Records FoundNo Family History Records FoundNo Family History Records Found Advance Directives No Advanced Directives Records FoundNo Advanced Directives Records FoundNo Advanced Directives Records Found Additional Source Comments INFORMATION SOURCE (unrecogn ized section and content) DATE CREATED AUTHOR [facility]10/2020 [facility] DATE CREATED AUTHOR AUTHOR'S ORGANIZ ATION 11/29/2022 [facility] DATE CREATED AUTHOR AUTHOR'S ORGANIZ ATION 01/02/2024 [facility] EPIC FOR RECORDS PERTAINING TO PATIENTS [...] BE BASED ON THE PRIMARY CLINICAL RECORDS. [facility] [employer] [facility]. provides no warranty or guarantee of the accuracy or completeness of information in this document.
== END 2024-08-17 11:00 | disposition home or self-care (01) ==
LOC: EC 11:00
PROVIDERS: PCP Nurse Practitioner Family; Visit Provider Orthopaedic Surgery
DX: S52.552D Other extraarticular fracture of lower end of left radius, subsequent encounter for closed fracture with routine healing (principal); S52.692D Other fracture of lower end of left ulna, subsequent encounter for closed fracture with routine healing
CPT/HCPCS: 73110

== ENCOUNTER 2024-09-11 11:36 | Outpatient (OUT) | payer MEDICARE, SELFPAY ==
--- NOTE | 2024-09-11 | XR_ITS ---
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 SOFT TISSUES:Cast material has been removed. EFFUSION:None visible. OTHER: Negative. XR/XR wrist LT min 3V IMPRESSION: 1. Stable alignment and ongoing bone healing of distal radius and ulna fractures. 2. 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 Electronically authenticated by: RUBIA WILSON Date: 09/12/2024 07:54
--- OUTSIDE RECORDS SUMMARY | 2024-09-11 11:50 | XMS_ITS | CCD ---
Author Organization [facility] Care Team Providers Care Private Pilot Name Role Phone ROBBY QUINTEROELA Admitting Unavailable [...] (Unsp spec) Not detected Normal NOT DETECTED [facility] Comment on above: Result Comment: When diagnostic [...] for this test is supported by the Painting Worker of Health and Human Service's declaration that [...] used). Performed By: #### C VDTB #### [facility] [address] [place] [address] Dr. Concetta Milligan PROF 14(COMP METB)on 023 Albumin [Mass/Vol] 3.5 g/dL Normal 3.4-5.0 [facility] Comment on above: Performed By: #### C MP #### [facility] [address] [place] [address] Dr. Concetta Milligan Albumin/Globulin [Mass ratio] 0.9 {ratio} Normal [facility] Comment on above: Performed By: #### C MP #### [facility] [address] [place] [address] Dr. Concetta Milligan ALP [Catalytic activity/Vol] 130 U/L Critically high 46-116 [facility] Comment on above: Performed By: #### C MP #### [facility] [address] [place] [address] Dr. Concetta Milligan ALT [Catalytic activity/Vol] 13 U/L Critically low 14-59 [facility] Comment on above: Performed By: #### C MP #### [facility] [address] [address] [address] Concetta Milligan Anion gap [Moles/Vol] 15.8 mmol/L Normal [facility] Comment on above: Performed By: #### C MP #### [facility] [address] [address] [address] Concetta Milligan AST [Catalytic activity/Vol] 22 U/L Normal 15-37 [facility] Comment on above: Performed By: #### C MP #### [facility] [address] [address] [address] Concetta Milligan Bilirubin [Mass/Vol] 0.5 mg/dL Normal 0.2-1.0 [facility] Comment on above: Performed By: #### C MP #### [facility] [address] [address] [address] Concetta Milligan Calcium [Mass/Vol] 8.7 mg/dL Normal 8.5-10.1 [facility] Comment on above: Performed By: #### C MP #### [facility] [address] [address] [address] Concetta Milligan Chloride [Moles/Vol] 102 mmol/L Normal 98-107 [facility] Comment on above: Performed By: #### C MP #### [facility] [address] [address] [address] Concetta Milligan CO2 [Moles/Vol] 26.6 mmol/L Normal 21.0-32.0 [facility] Comment on above: Performed By: #### C MP #### [facility] [address] [address] [address] Concetta Milligan Creatinine [Mass/Vol] 0.87 mg/dL Normal 0.55-1.02 [facility] Comment on above: Performed By: #### C MP #### [facility] [address] [place] [address] Dr. Concetta Milligan EGFR-AF CONGOLESE >60 Normal >=60 [facility] Comment on above: Performed By: #### C MP #### [facility] [address] [address] [address] Concetta Milligan EGFR-NON AF CONGOLESE >60 Normal >=60 [facility] Comment on above: Performed By: #### C MP #### [facility] [address] [address] [address] Concetta Milligan Globulin (S) [Mass/Vol] 3.8 g/dL Normal [facility] Comment on above: Performed By: #### C MP #### [facility] [address] [address] [address] Concetta Milligan Glucose [Mass/Vol] 124 mg/dL Critically high 74-106 [facility] Comment on above: Performed By: #### C MP #### [facility] [address] [address] [address] Concetta Milligan Potassium [Moles/Vol] 3.4 mmol/L Critically low 3.5-5.1 [facility] Comment on above: Performed By: #### C MP #### [facility] [address] [address] [address] Concetta Milligan Protein [Mass/Vol] 7.3 g/dL Normal 6.4-8.2 [facility] Comment on above: Performed By: #### C MP #### [facility] [address] [address] [address] Concetta Milligan Sodium [Moles/Vol] 141 mmol/L Normal 136-145 [facility] Comment on above: Performed By: #### C MP #### [facility] [address] [address] [address] Concetta Milligan Urea nitrogen [Mass/Vol] 15.0 mg/dL Normal 7.0-18.0 [facility] Comment on above: Performed By: #### C MP #### [facility] [address] [address] [address] Concetta Milligan Urea nitrogen/Creatinine [Mass ratio] 17.2 mg/mg Normal [facility] Comment on above: Performed By: #### C MP #### [facility] [address] [address] [address] Concetta Milligan INSULINon 10-13-2022 Insulin 70.6 uIU/mL Critically high 2.6-24.9 [facility] Comment on above: Performed By: #### I NSULIN #### [facility] [address] [place] [address] Dr. Concetta Milligan CBC AUTO DIFFon 10-12-2022 BASO # 0.1 103/ul Normal 0.0-0.1 [facility] Comment on above: Performed By: #### C BC #### [facility] [address] [place] [address] Dr. Concetta Milligan Basophils/100 WBC (Bld) 0.7 % Normal 0.2-2.0 [facility] Comment on above: Performed By: #### C BC #### [facility] [address] [place] [address] Dr. Concetta Milligan EO # 0.1 103/ul Normal 0.0-0.7 [facility] Comment on above: Performed By: #### C BC #### [facility] [address] [place] [address] Dr. Concetta Milligan Eosinophils/100 WBC (Bld) 2.0 % Normal 0.9-7.0 [facility] Comment on above: Performed By: #### C BC #### [facility] [address] [place] [address] Dr. Concetta Milligan Erythrocyte distribution width (RBC) [Ratio] 16.1 % Critically high 11.0-15.0 [facility] Comment on above: Performed By: #### C BC #### [facility] [address] [place] [address] Dr. Concetta Milligan Hematocrit (Bld) [Volume fraction] 40.8 % Normal 36.0-48.0 [facility] Comment on above: Performed By: #### C BC #### [facility] [address] [place] [address] Dr. Concetta Milligan Hemoglobin (Bld) [Mass/Vol] 15.1 g/dL Normal 12.0-16.0 [facility] Comment on above: Performed By: #### C BC #### [facility] [address] [place] [address] Dr. Concetta Milligan IG # 0.02 10e3/ul Normal 0.00-0.03 [facility] Comment on above: Performed By: #### C BC #### [facility] [address] [place] [address] Dr. Concetta Milligan IG % 0.3 % Normal 0.0-0.5 [facility] Comment on above: Performed By: #### C BC #### [facility] [address] [place] [address] Dr. Concetta Milligan LYMPH # 1.5 103/ul Normal 1.2-3.8 [facility] Comment on above: Performed By: #### C BC #### [facility] [address] [place] [address] Dr. Concetta Milligan Lymphocytes/100 WBC (Bld) 22.0 % Normal 20.5-60.0 [facility] Comment on above: Performed By: #### C BC #### [facility] [address] [place] [address] Dr. Concetta Milligan MANUAL DIFF REQ NO Normal [facility] Comment on above: Performed By: #### C BC #### [facility] [address] [place] [address] Dr. Concetta Milligan MCH (RBC) [Entitic mass] 32.1 pg Normal 26.7-34.0 [facility] Comment on above: Performed By: #### C BC #### [facility] [address] [place] [address] Dr. Concetta Milligan MCHC (RBC) [Mass/Vol] 37.0 g/dL Critically high 29.9-35.2 [facility] Comment on above: Performed By: #### C BC #### [facility] [address] [place] [address] Dr. Concetta Milligan MCV (RBC) [Entitic vol] 86.6 fL Normal 81.0-99.0 [facility] Comment on above: Performed By: #### C BC #### [facility] [address] [place] [address] Dr. Concetta Milligan MONO # 0.4 103/ul Normal 0.3-0.8 [facility] Comment on above: Performed By: #### C BC #### [facility] [address] [place] [address] Dr. Concetta Milligan Monocytes/100 WBC (Bld) 5.8 % Normal 1.7-12.0 [facility] Comment on above: Performed By: #### C BC #### [facility] [address] [place] [address] Dr. Concetta Milligan NEUT # 4.8 103/ul Normal 1.4-6.5 [facility] Comment on above: Performed By: #### C BC #### [facility] [address] [place] [address] Dr. Concetta Milligan Neutrophils/100 WBC (Bld) 69.2 % Normal 43.0-75.0 [facility] Comment on above: Performed By: #### C BC #### [facility] [address] [place] [address] Dr. Concetta Milligan Platelet mean volume (Bld) [Entitic vol] 8.7 fL Critically low 9.5-13.5 [facility] Comment on above: Performed By: #### C BC #### [facility] [address] [place] [address] Dr. Concetta Milligan PLT 204 103/ul Normal 150-450 [facility] Comment on above: Performed By: #### C BC #### [facility] [address] [place] [address] Dr. Concetta Milligan RBC 4.71 106/ul Normal 4.20-5.40 [facility] Comment on above: Performed By: #### C BC #### [facility] [address] [place] [address] Dr. Concetta Milligan WBC 6.9 103/ul Normal 4.0-11.0 [facility] Comment on above: Performed By: #### C BC #### [facility] [address] [place] [address] Dr. Concetta Milligan FREE THYROXINE INDEX T7on FTI 2.24 Normal 1.30-4.50 [facility] Comment on above: Performed By: #### T SH, T7, CMP, LIPID #### [facility] [address] [address] [address] Concetta Milligan T3U 35.0 % Normal 30.0-39.0 [facility] Comment on above: Performed By: #### T SH, T7, CMP, LIPID #### [facility] [address] [address] [address] Concetta Milligan T4 [Mass/Vol] 6.40 ug/dL Normal 4.80-13.90 [facility] Comment on above: Performed By: #### T SH, T7, CMP, LIPID #### [facility] [address] [address] [address] Concetta Milligan GLYCOHEMOGLOBIN A1Con 2022 ADA RECOMMENDATION SEE BELOW Normal [facility] Comment on above: Result Comment: ADA RECOMMENDED LIMIT 4.0 - 6.0 ADA THERAPEUTIC TARGET < 7.0 ACTION SUGGESTED > 7.0 Performed By: #### A 1C #### [facility] [address] [place] [address] Dr. Concetta Milligan Glucose [Mass/Vol] 114 mg/dL Normal [facility] Comment on above: Performed By: #### A 1C #### [facility] [address] [place] [address] Dr. Concetta Milligan HbA1c (Bld) [Mass fraction] 5.6 % Normal 4.5-6.2 [facility] Comment on above: Performed By: #### A 1C #### [facility] [address] [address] [address] Concetta Milligan IRONon 10-12-2022 Iron [Mass/Vol] 111.0 ug/dL Normal 50.0-170.0 [facility] Comment on above: Performed By: #### I MALA #### [facility] [address] [place] [address] Dr. Concetta Milligan LIPID PROFILEon 10-12-2022 CHOL-HDL RATIO NORM SEE BELOW Normal [facility] Comment on above: Result Comment: 3.3 - 4.4 LOW RISK 4.4 - 7.1 AVERAGE RISK 7.1 - 11.0 MODERATE RISK >11.0 HIGH RISK Performed By: #### T SH, T7, CMP, LIPID #### [facility] [address] [address] [address] Concetta Milligan Cholesterol [Mass/Vol] 153 mg/dL Normal <=200 [facility] Comment on above: Performed By: #### T SH, T7, CMP, LIPID #### [facility] [address] [address] [address] Concetta Milligan Cholesterol in HDL [Mass/Vol] 51 mg/dL Normal 40-60 [facility] Comment on above: Performed By: #### T SH, T7, CMP, LIPID #### [facility] [address] [address] [address] Concetta Milligan Cholesterol in LDL [Mass/Vol] 76.2 mg/dL Normal [facility] Comment on above: Performed By: #### T SH, T7, CMP, LIPID #### [facility] [address] [address] [address] Concetta Milligan Cholesterol.total/Cho lesterol in HDL [Mass ratio] 3.0 {ratio} Normal [facility] Comment on above: Performed By: #### T SH, T7, CMP, LIPID #### [facility] [address] [place] [address] Dr. Concetta Milligan HDL NORMAL > or = 60 mg/dl - LO W CARDIOVASCULAR RISK <40 mg/dl - HIGH CARDIOVASCULAR RISK Normal [facility] Comment on above: Performed By: #### T SH, T7, CMP, LIPID #### [facility] [address] [place] [address] Dr. Concetta Milligan LDL CALC NORMAL SEE BELOW Normal [facility] Comment on above: Result Comment: <100 mg/dl OPTIMAL 100 - 129 mg/dl NEAR OR ABOVE OPTIMAL 130 - 159 mg/dl BORDERLINE HIGH 160 - 189 mg/dl HIGH >190 mg/dl VERY HIGH Performed By: #### T SH, T7, CMP, LIPID #### [facility] [address] [address] [address] Concetta Milligan Triglyceride [Mass/Vol] 129 mg/dL Normal <=150 [facility] Comment on above: Performed By: #### T SH, T7, CMP, LIPID #### [facility] [address] [address] [address] Concetta Milligan VLDL CALC 25.8 mg/dL Normal [facility] Comment on above: Performed By: #### T SH, T7, CMP, LIPID #### [facility] [address] [address] [address] Concetta Milligan PROF 14(COMP METB)on 023 Albumin [Mass/Vol] 3.4 g/dL Normal 3.4-5.0 [facility] Comment on above: Performed By: #### T SH, T7, CMP, LIPID #### [facility] [address] [place] [address] Dr. Concetta Milligan Albumin/Globulin [Mass ratio] 0.9 {ratio} Normal [facility] Comment on above: Performed By: #### T SH, T7, CMP, LIPID #### [facility] [address] [place] [address] Dr. Concetta Milligan ALP [Catalytic activity/Vol] 128 U/L Critically high 46-116 [facility] Comment on above: Performed By: #### T SH, T7, CMP, LIPID #### [facility] [address] [address] [address] Concetta Milligan ALT [Catalytic activity/Vol] 12 U/L Critically low 14-59 [facility] Comment on above: Performed By: #### T SH, T7, CMP, LIPID #### [facility] [address] [place] [address] Dr. Concetta Milligan Anion gap [Moles/Vol] 11.2 mmol/L Normal [facility] Comment on above: Performed By: #### T SH, T7, CMP, LIPID #### [facility] [address] [place] [address] Dr. Concetta Milligan AST [Catalytic activity/Vol] 15 U/L Normal 15-37 [facility] Comment on above: Performed By: #### T SH, T7, CMP, LIPID #### [facility] [address] [address] [address] Concetta Milligan Bilirubin [Mass/Vol] 0.4 mg/dL Normal 0.2-1.0 [facility] Comment on above: Performed By: #### T SH, T7, CMP, LIPID #### [facility] [address] [address] [address] Concetta Milligan Calcium [Mass/Vol] 8.5 mg/dL Normal 8.5-10.1 [facility] Comment on above: Performed By: #### T SH, T7, CMP, LIPID #### [facility] [address] [address] [address] Concetta Milligan Chloride [Moles/Vol] 103 mmol/L Normal 98-107 [facility] Comment on above: Performed By: #### T SH, T7, CMP, LIPID #### [facility] [address] [address] [address] Concetta Milligan CO2 [Moles/Vol] 29.9 mmol/L Normal 21.0-32.0 [facility] Comment on above: Performed By: #### T SH, T7, CMP, LIPID #### [facility] [address] [address] [address] Concetta Milligan Creatinine [Mass/Vol] 0.77 mg/dL Normal 0.55-1.02 [facility] Comment on above: Performed By: #### T SH, T7, CMP, LIPID #### [facility] [address] [address] [address] Concetta Milligan EGFR-AF CONGOLESE >60 Normal >=60 [facility] Comment on above: Performed By: #### T SH, T7, CMP, LIPID #### [facility] [address] [address] [address] Concetta Milligan EGFR-NON AF CONGOLESE >60 Normal >=60 [facility] Comment on above: Performed By: #### T SH, T7, CMP, LIPID #### [facility] [address] [address] [address] Concetta Milligan Globulin (S) [Mass/Vol] 3.8 g/dL Normal [facility] Comment on above: Performed By: #### T SH, T7, CMP, LIPID #### [facility] [address] [address] [address] Concetta Milligan Glucose [Mass/Vol] 116 mg/dL Critically high 74-106 [facility] Comment on above: Performed By: #### T SH, T7, CMP, LIPID #### [facility] [address] [address] [address] Concetta Milligan Potassium [Moles/Vol] 3.1 mmol/L Critically low 3.5-5.1 [facility] Comment on above: Performed By: #### T SH, T7, CMP, LIPID #### [facility] [address] [address] [address] Concetta Milligan Protein [Mass/Vol] 7.2 g/dL Normal 6.4-8.2 [facility] Comment on above: Performed By: #### T SH, T7, CMP, LIPID #### [facility] [address] [address] [address] Concetta Milligan Sodium [Moles/Vol] 141 mmol/L Normal 136-145 [facility] Comment on above: Performed By: #### T SH, T7, CMP, LIPID #### [facility] [address] [address] [address] Concetta Milligan Urea nitrogen [Mass/Vol] 14.0 mg/dL Normal 7.0-18.0 [facility] Comment on above: Performed By: #### T SH, T7, CMP, LIPID #### [facility] [address] [place] [address] Dr. Concetta Milligan Urea nitrogen/Creatinine [Mass ratio] 18.2 mg/mg Normal [facility] Comment on above: Performed By: #### T SH, T7, CMP, LIPID #### [facility] [address] [place] [address] Dr. Concetta Milligan TSHon 10-12-2022 TSH 1.144 uIU/mL Normal 0.358-3.740 [facility] Comment on above: Performed By: #### T SH, T7, CMP, LIPID #### [facility] [address] [address] [address] Concetta Milligan Coding Summary.on 03-15-2020 Coding Summary. CODING DATE: 03/15/[address] [facility] STATUS: Home (Routine DC) PAYOR: Medicare [...] Ivette Verma Date Saved: 03/15/2020 07:39 am [facility] Coding Summary.on 03-09-2020 Coding Summary. CODING DATE: 03/09/[address] [facility] STATUS: Home (Routine DC) PAYOR: Medicare [...] Marah Carmona Date Saved: 03/09/2020 10:40 am [facility] Consent for Treatmenton 02-21 Consent for Treatment [id number] .00CD:127 [facility] Discharge Instructionson Discharge Instructions [id number]# 1.00CD:127 [facility] History and Physicalon 03-08 History and Physical [id number]# 1.00CD:127 [facility] Inpatient Patient Summaryon 03-08-2020 Inpatient Patient Summary [address] [address] Clinical Summary Person Information Name: DONNY JURADO Age: 69 Years : 1950 Sex: Female PCP: NIURKA BEGUM MD Marital Status: Race: White Ethnicity: Non- or Language: Kenyan Visit Id: Visit Reason: GROSS HEMATURIA Speciality: Acuity: Enc Type: Outpatient Med Service: Surgery Arrival: 03/08/2020 12:23:46 Discharge: Dispo Type: Address: [address] [place] [id number] Provider Notes: Diagnosis: Colovesical fistula; Gross hematuria [...] Follow up: With: Address: When: Shorty Stark [address] [place] [address], [facility] [address] [address] Business (1) , only if needed Patient Education Information: Diverticulitis Normal [facility] IntraOperative Documentson 0 03-08-2020 IntraOperative Documents [id number]# 1.00CD:127 Normal [facility] IntraOperative Documents [id number]# 1.00CD:127 Normal [facility] Main OR Intraoperative Recor don 03-08-2020 Main OR Intraoperative Record IntraOp Document Type FTURO Summary Primary Physician: Shorty Stark MD Finalized Date/Time: 03/08/20 12:52:53 Pt. Name: DONNY JURADO Emily Nix/Sex: 1950 Female Med Rec #: [id number] Physician: Shorty Stark MD Financial #: [id number] Pt. Type: O Room/Bed: / Admit/Disch: 03/08/20 [...] Goldstein CST Role Performed Surgeon - Primary Oil Deliverer - Primary Scrub - Primary Time In [...] Participants Pascual QUESADA, JOANOR, Applicable) Angelita Cho MARINE SURVEYOR, [place] Time Out Complete 03/08/20 12:45:00 Allergies [...] JOE Garner RN, Ruthann 03/08/20 12:52 Normal [facility] Main OR Preoperative Recordo n 03-08-2020 Main OR Preoperative Record Holding Area Document Type FTURO Summary Primary Physician: Shorty Stark MD Finalized Date/Time: 03/08/20 12:50:09 Pt. Name: DONNY JURADO /Sex: 1950 Female Med Rec #: [id number] Physician: Shorty Stark MD Financial #: [id number] Pt. Type: O Room/Bed: / Admit/Disch: 03/08/20 [...] Complaints of Pain: No Skin Integrity Intact, [place], Warm, & Dry Vitals - EU Blood Pressure Pulse 76 Respirations 20 SPO2 Blood Pressure 100/66 Pulse Respirations SPO2 RN Reviewed Yes Last Modified By: JOE Garner RN, Ruthann 03/08/20 12:50:07 General Comments: temp 36.5 Finalized By: JOE Garner RN, Ruthann Document Signatures Signed By: Rosa Johnson LPN 03/08/20 12:35 Rosa Johnson LPN 03/08/20 12:35 Pascual QUESADA Tammie DIAZ 03/08/20 12:50 Normal [facility] Operative Reporton 0 Operative Report Patient: DONNY [...] patient wished to followup as needed.. Normal [facility] Comment on above: Result Comment: Elec [...] performed at: [facility], [address] [place] [address], [id number]- , [place], Normal [facility] Comment on above: Performed By: #### 2 [id number] #### [facility] [address] [place] [id number] Ambulatory Clinical Summaryo n 02-24-2020 Ambulatory Clinical Summary {[id number] Normal [facility] Progress Note-Physicianon Progress Note-Physician I got some results in my inbasket from [facility] I was asked to sign off on. [...] and never had hematuria again since leaving [facility] for the [place]. 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 Craig Stark MD [facility] Comment on above: Result Comment: [...] Facility:[facility] Payers Date Payer Category Payer Medicare [id number] 1958 Private Health Insurance [id number] 1950 Unknown [id number] 2.16.84 [id number] 1950 Unknown [id number] 2.16.84 [id number] 1950 Unknown [id number] 2.16.84 [id number] 1950 Unknown [id number] 2.16.84 [id number] 1950 Unknown [id number] 2.16.84 [id number] 1950 Unknown [id number] 2.16.84 [id number] Summary Purpose Family History No Family History Records FoundNo Family History Records FoundNo Family History Records Found Advance Directives No Advanced Directives Records FoundNo Advanced Directives Records FoundNo Advanced Directives Records Found Additional Source Comments INFORMATION SOURCE (unrecogn ized section and content) DATE CREATED AUTHOR [facility]10/2020 [facility] DATE CREATED AUTHOR AUTHOR'S ORGANIZ ATION 11/29/2022 Josephine Amezquita [facility] DATE CREATED AUTHOR AUTHOR'S ORGANIZ ATION 01/02/2024 [facility] EPIC FOR RECORDS PERTAINING TO PATIENTS [...] BE BASED ON THE PRIMARY CLINICAL RECORDS. [facility]. provides no warranty or guarantee of the accuracy or completeness of information in this document.
== END 2024-09-11 11:37 | disposition home or self-care (01) ==
LOC: EC 11:37
PROVIDERS: PCP Nurse Practitioner Family; Visit Provider Physician Assistant
DX: S52.692D Other fracture of lower end of left ulna, subsequent encounter for closed fracture with routine healing (principal)
CPT/HCPCS: 73110

== ENCOUNTER 2024-10-12 11:29 | Outpatient (OUT) | payer MEDICARE, SELFPAY ==
--- NOTE | 2024-10-12 | XR_ITS ---
The [address] [address] Patient Name: DONNY JURADO MRN: [id number] date: 1950 Sex: F Assigned Patient Location: Current Patient Location: Accession/Order Number: [id number] Exam Date: 10/12/2024 11:30 Report Date: 10/13/2024 10:50 At the request of: RUBIA MICHELE Procedure: XR wrist LT min 3V PROCEDURE: XR wrist LT min 3V HISTORY: LEFT WRIST PAIN COMPARISON: XR wrist left 09/11/2024 FINDINGS: BONES:Stable mildly displaced and mildly impacted transverse fracture through distal radial metaphysis. Stable mildly displaced ulnar styloid process fracture. 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 SOFT TISSUES:Mild soft tissue swelling. EFFUSION:None visible. OTHER: Negative. XR/XR wrist LT min 3V IMPRESSION: 1. Stable alignment and mild bone healing of distal radius and ulna fractures. No significant change. 2. Multifocal degenerative changes. Electronically authenticated by: RUBIA WILSON Date: 10/13/2024 10:50
--- OUTSIDE RECORDS SUMMARY | 2024-10-12 11:32 | XMS_ITS | CCD ---
Author Organization [facility] Care Team Providers Care Golf Ball Marker Name Role Phone AISSATOU QUINTERO Admitting Unavailable AISSATOU QUINTERO Attending Unavailable AISSATOU QUINTERO Primary Care Unavailable INGRID, AISSATOU Consulting Unavailable INGRID, AISSATOU Admitting Unavailable INGRID, AISSATOU Attending Unavailable INGRID, AISSATOU Primary Care Unavailable INGRID, AISSATOU Consulting Unavailable INGRID, AISSATOU Admitting Unavailable INGRID, AISSATOU Attending Unavailable INGRID, AISSATOU Primary Care Unavailable AISSATOU QUINTERO Consulting Unavailable Aissatou Quintero MD Unavailable Lenora Lyman OD Unavailable RUSTY LI Attending Unavailable RUSTY LI Referring Unavailable RUSTY LI Attending Unavailable CHAPIN DANIELSON Attending Unavailable Medications Current Medications Medication Drug Class(es) Dates Sig (Normalized) Sig (Original) alendronic acid 70 mg oral tablet (2 sources) Bisphosphonate alendronate (Fosamax) 70 MG tablet PLEASE SEE ATTACHED FOR DETAILED DIRECTIONS Active atorvastatin 40 mg oral tablet (2 sources) HMG-CoA Reductase Inhibitor take 1 tablet by mouth once daily atorvastatin (Lipitor) 40 MG tablet TAKE 1 TABLET BY MOUTH EVERY DAY FOR 30 DAYS Active Blood Glucose Monitoring Suppl (Accu-Chek Guide Me) w/Device kit (2 sources) Start: 11-07-2023 Blood Glucose Monitoring Suppl (Accu-Chek Guide Me) w/Device kit TEST ONCE DAILY*E11.9* 11/07/2023 Active carvedilol 25 mg oral tablet (2 sources) alpha-Adrenergic Jagjit, beta-Adrenergic Jagjit Start: 10-25-2023 take 1 tablet by mouth in the morning carvedilol (Coreg) 25 MG tablet Take 25 mg by mouth in the morning and 25 mg before bedtime. 10/25/2023 Active cholecalciferol 0.025 mg oral capsule (2 sources) Vitamin D Start: 12-15-2023 take 1 capsule by mouth once daily cholecalciferol 25 MCG (1000 UT) capsule TAKE 1 CAPSULE BY MOUTH EVERY DAY FOR 30 DAYS 12/15/2023 Active ketorolac tromethamine 5 mg/ml ophthalmic solution (1 source) Nonsteroidal Anti-inflammatory Drug, Cyclooxygenase Inhibitor Start: 09-29-2024 End: 10-29-2024 take 1 drop(s) into the eye(s) in the morning ketorolac (Acular) 0.5 % ophthalmic solution Indications: Age-related nuclear cataract of right eye Administer 1 drop into affected eye(s) in the morning and 1 drop before bedtime. 5 mL 1 09/29/2024 10/29/2024 Active losartan potassium 100 mg oral tablet (2 sources) Angiotensin 2 Receptor Jagjit take 1 tablet by mouth in the morning losartan (Cozaar) 100 MG tablet Take 100 mg by mouth in the morning. Active ofloxacin 3 mg/ml ophthalmic solution (1 source) Quinolone Antimicrobial Start: 09-29-2024 End: 09-30-2024 take 1 drop(s) into the eye(s) five times daily ofloxacin (Ocuflox) 0.3 % ophthalmic solution Indications: Age-related nuclear cataract of right eye Administer 1 drop into the right eye 5 (five) times a day for 1 day Starting 1 day before surgery, continue after surgery as directed 5 mL 1 09/29/2024 09/30/2024 Active pantoprazole 40 mg delayed release oral tablet (2 sources) Proton Pump Inhibitor Start: 10-21-2023 take 1 tablet by mouth in the morning pantoprazole (ProtoNix) 40 MG EC tablet Take 40 mg by mouth in the morning. 10/21/2023 Active prednisoLONE acetate 10 mg/ml ophthalmic suspension (1 source) Corticosteroid Start: 09-29-2024 End: 10-13-2024 prednisoLONE acetate (Pred-Forte) 1 % ophthalmic suspension Indications: Age-related nuclear cataract of right eye Administer 1 drop into both eyes in the morning and 1 drop at noon and 1 drop in the evening and 1 drop before bedtime. Do all this for 14 days. 5 mL 1 09/29/2024 10/13/2024 Active traZODone hydrochloride 100 mg oral tablet (2 sources) Serotonin Reuptake Inhibitor Start: 10-25-2023 take 1 tablet by mouth in the morning traZODone (Desyrel) 100 MG tablet Take 100 mg by mouth in the morning. 10/25/2023 Active Problems Active Problems Problem Classification Problem Date Documented Da te Episodic/Chronic Cataract (3 sources) Age-related nuclear cataract of right eye; Translations: [Age-related nuclear cataract, right eye] Onset: 09-29-2024 Resolved: 09-29-2024 09-29-2024 Chronic Deficiency and other anemia (1 source) Anemia, [...] Test Name Value Interpretation Reference Range Facility US Eye+Orbit - bilateralon 0 09-29-2024 Diagnosis: Cataract both eyes (OU) Testing Indication: Performed for preop measurements in the determination of an intraocular lens (IOL) for both eyes (OU) Test Reliability: Good quality both eyes (OU) Interpretation: Good measurements for intraocular lens (IOL) calculation purposes. Calculation made for both eyes (OU). [facility] e Radiology Study observation (narrative) [facility] Covid-19 PCR (CVDTBH)on SARS-CoV-2 (COVID-19) RNA COLT+probe Ql (Unsp spec) Not detected Normal NOT DETECTED [facility] Comment on above: Result Comment: When diagnostic [...] for this test is supported by the Retread Technician of Health and Human Service's declaration that [...] longer be used). Performed By: #### [facility] #### [facility] [address] [place] [address] Dr. Concetta Milligan PROF 14(COMP METB)on 023 Albumin [Mass/Vol] 3.5 g/dL Normal 3.4-5.0 [facility] Comment on above: Performed By: #### C MP #### [facility] [address] [place] [address] Dr. Concetta Milligan Albumin/Globulin [Mass ratio] 0.9 {ratio} Normal [facility] Comment on above: Performed By: #### C MP #### [facility] [address] [place] [address] Dr. Concetta Milligan ALP [Catalytic activity/Vol] 130 U/L Critically high 46-116 [facility] Comment on above: Performed By: #### C MP #### [facility] [address] [place] [address] Dr. Concetta Milligan ALT [Catalytic activity/Vol] 13 U/L Critically low 14-59 [facility] Comment on above: Performed By: #### C MP #### [facility] [address] [place] [address] Dr. Concetta Milligan Anion gap [Moles/Vol] 15.8 mmol/L Normal [facility] Comment on above: Performed By: #### C MP #### [facility] [address] [address] [address] Concetta Milligan AST [Catalytic activity/Vol] 22 U/L Normal 15-37 [facility] Comment on above: Performed By: #### C MP #### [facility] [address] [address] [address] Concetta Milligan Bilirubin [Mass/Vol] 0.5 mg/dL Normal 0.2-1.0 [facility] Comment on above: Performed By: #### C MP #### [facility] [address] [address] [address] Concetta Milligan Calcium [Mass/Vol] 8.7 mg/dL Normal 8.5-10.1 [facility] Comment on above: Performed By: #### C MP #### [facility] [address] [address] [address] Concetta Milligan Chloride [Moles/Vol] 102 mmol/L Normal 98-107 [facility] Comment on above: Performed By: #### C MP #### [facility] [address] [address] [address] Concetta Milligan CO2 [Moles/Vol] 26.6 mmol/L Normal 21.0-32.0 [facility] Comment on above: Performed By: #### C MP #### [facility] [address] [address] [address] Concetta Milligan Creatinine [Mass/Vol] 0.87 mg/dL Normal 0.55-1.02 [facility] Comment on above: Performed By: #### C MP #### [facility] [address] [address] [address] Concetta Milligan EGFR-AF MALAGASY >60 Normal >=[address] [facility] Comment on above: Performed By: #### C MP #### [facility] [address] [address] [address] Concetta Milligan EGFR-NON AF MALAGASY >60 Normal >=60 [facility] Comment on above: Performed By: #### C MP #### [facility] [address] [address] [address] Concetta Milligan Globulin (S) [Mass/Vol] 3.8 g/dL Normal [facility] Comment on above: Performed By: #### C MP #### [facility] [address] [address] [address] Concetta Milligan Glucose [Mass/Vol] 124 mg/dL Critically high 74-106 [facility] Comment on above: Performed By: #### C MP #### [facility] [address] [address] [address] Concetta Milligan Potassium [Moles/Vol] 3.4 mmol/L Critically low 3.5-5.1 [facility] Comment on above: Performed By: #### C MP #### [facility] [address] [place] [address] Dr. Concetta Milligan Protein [Mass/Vol] 7.3 g/dL Normal 6.4-8.2 [facility] Comment on above: Performed By: #### C MP #### [facility] [address] [place] [address] Dr. Concetta Milligan Sodium [Moles/Vol] 141 mmol/L Normal 136-145 [facility] Comment on above: Performed By: #### C MP #### [facility] [address] [place] [address] Dr. Concetta Milligan Urea nitrogen [Mass/Vol] 15.0 mg/dL Normal 7.0-18.0 [facility] Comment on above: Performed By: #### C MP #### [facility] [address] [place] [address] Dr. Concetta Milligan Urea nitrogen/Creatinine [Mass ratio] 17.2 mg/mg Normal [facility] Comment on above: Performed By: #### C MP #### [facility] [address] [address] [address] Concetta Milligan INSULINon 10-13-2022 Insulin 70.6 uIU/mL Critically high 2.6-24.9 [facility] Comment on above: Performed By: #### I NSULIN #### [facility] [address] [place] [address] Dr. Concetta Milligan CBC AUTO DIFFon 10-12-2022 BASO # 0.1 103/ul Normal 0.0-0.1 [facility] Comment on above: Performed By: #### C BC #### [facility] [address] [place] [address] Dr. Concetta Milligan Basophils/100 WBC (Bld) 0.7 % Normal 0.2-2.0 [facility] Comment on above: Performed By: #### C BC #### [facility] [address] [place] [address] Dr. Concetta Milligan EO # 0.1 103/ul Normal 0.0-0.7 [facility] Comment on above: Performed By: #### C BC #### [facility] [address] [place] [address] Dr. Concetta Milligan Eosinophils/100 WBC (Bld) 2.0 % Normal 0.9-7.0 [facility] Comment on above: Performed By: #### C BC #### [facility] [address] [place] [address] Dr. Concetta Milligan Erythrocyte distribution width (RBC) [Ratio] 16.1 % Critically high 11.0-15.0 [facility] Comment on above: Performed By: #### C BC #### [facility] [address] [place] [address] Dr. Concetta Milligan Hematocrit (Bld) [Volume fraction] 40.8 % Normal 36.0-48.0 [facility] Comment on above: Performed By: #### C BC #### [facility] [address] [place] [address] Dr. Concetta Milligan Hemoglobin (Bld) [Mass/Vol] 15.1 g/dL Normal 12.0-16.0 [facility] Comment on above: Performed By: #### C BC #### [facility] [address] [place] [address] Dr. Concetta Milligan IG # 0.02 10e3/ul Normal 0.00-0.03 [facility] Comment on above: Performed By: #### C BC #### [facility] [address] [place] [address] Dr. Concetta Milligan IG % 0.3 % Normal 0.0-0.5 [facility] Comment on above: Performed By: #### C BC #### [facility] [address] [place] [address] Dr. Concetta Milligan LYMPH # 1.5 103/ul Normal 1.2-3.8 [facility] Comment on above: Performed By: #### C BC #### [facility] [address] [place] [address] Dr. Concetta Milligan Lymphocytes/100 WBC (Bld) 22.0 % Normal 20.5-60.0 [facility] Comment on above: Performed By: #### C BC #### [facility] [address] [place] [address] Dr. Concetta Milligan MANUAL DIFF REQ NO Normal [facility] Comment on above: Performed By: #### C BC #### [facility] [address] [place] [address] Dr. Concetta Milligan MCH (RBC) [Entitic mass] 32.1 pg Normal 26.7-34.0 [facility] Comment on above: Performed By: #### C BC #### [facility] [address] [place] [address] Dr. Concetta Milligan MCHC (RBC) [Mass/Vol] 37.0 g/dL Critically high 29.9-35.2 [facility] Comment on above: Performed By: #### C BC #### [facility] [address] [place] [address] Dr. Concetta Milligan MCV (RBC) [Entitic vol] 86.6 fL Normal 81.0-99.0 [facility] Comment on above: Performed By: #### C BC #### [facility] [address] [place] [address] Dr. Concetta Milligan MONO # 0.4 103/ul Normal 0.3-0.8 [facility] Comment on above: Performed By: #### C BC #### [facility] [address] [place] [address] Dr. Concetta Milligan Monocytes/100 WBC (Bld) 5.8 % Normal 1.7-12.0 [facility] Comment on above: Performed By: #### C BC #### [facility] [address] [place] [address] Dr. Concetta Milligan NEUT # 4.8 103/ul Normal 1.4-6.5 [facility] Comment on above: Performed By: #### C BC #### [facility] [address] [place] [address] Dr. Concetta Milligan Neutrophils/100 WBC (Bld) 69.2 % Normal 43.0-75.0 [facility] Comment on above: Performed By: #### C BC #### [facility] [address] [place] [address] Dr. Concetta Milligan Platelet mean volume (Bld) [Entitic vol] 8.7 fL Critically low 9.5-13.5 [facility] Comment on above: Performed By: #### C BC #### [facility] [address] [place] [address] Dr. Concetta Milligan PLT 204 103/ul Normal 150-450 [facility] Comment on above: Performed By: #### C BC #### [facility] [address] [place] [address] Dr. Concetta Milligan RBC 4.71 106/ul Normal 4.20-5.40 [facility] Comment on above: Performed By: #### C BC #### [facility] [address] [place] [address] Dr. Concetta Milligan WBC 6.9 103/ul Normal 4.0-11.0 [facility] Comment on above: Performed By: #### C BC #### [facility] [address] [place] [address] Dr. Concetta Milligan FREE THYROXINE INDEX T7on FTI 2.24 Normal 1.30-4.50 [facility] Comment on above: Performed By: #### T SH, T7, CMP, LIPID #### [facility] [address] [place] [address] Dr. Concetta Milligan T3U 35.0 % Normal 30.0-39.0 [facility] Comment on above: Performed By: #### T SH, T7, CMP, LIPID #### [facility] [address] [address] [address] Concetta Milligan T4 [Mass/Vol] 6.40 ug/dL Normal 4.80-13.90 [facility] Comment on above: Performed By: #### T SH, T7, CMP, LIPID #### [facility] [address] [address] [address] Concetta Milligan GLYCOHEMOGLOBIN A1Con 2022 ADA RECOMMENDATION SEE BELOW Normal [facility] Comment on above: Result Comment: ADA RECOMMENDED LIMIT 4.0 - 6.0 ADA THERAPEUTIC TARGET < 7.0 ACTION SUGGESTED > 7.0 Performed By: #### A 1C #### [facility] [address] [place] [address] Dr. Concetta Milligan Glucose [Mass/Vol] 114 mg/dL Normal [facility] Comment on above: Performed By: #### A 1C #### [facility] [address] [address] [address] Concetta Milligan HbA1c (Bld) [Mass fraction] 5.6 % Normal 4.5-6.2 [facility] Comment on above: Performed By: #### A 1C #### [facility] [address] [place] [address] Dr. Concetta Milligan IRONon 10-12-2022 Iron [Mass/Vol] 111.0 ug/dL Normal 50.0-170.0 [facility] Comment on above: Performed By: #### I MALA #### [facility] [address] [address] [address] Concetta Milligan LIPID PROFILEon 10-12-2022 CHOL-HDL RATIO NORM SEE BELOW Normal [facility] Comment on above: Result Comment: 3.3 - 4.4 LOW RISK 4.4 - 7.1 AVERAGE RISK 7.1 - 11.0 MODERATE RISK >11.0 HIGH RISK Performed By: #### T SH, T7, CMP, LIPID #### [facility] [address] [address] [address] Concetta Milligan Cholesterol [Mass/Vol] 153 mg/dL Normal <=200 [facility] Comment on above: Performed By: #### T SH, T7, CMP, LIPID #### [facility] [address] [address] [address] Concetta Milligan Cholesterol in HDL [Mass/Vol] 51 mg/dL Normal 40-60 [facility] Comment on above: Performed By: #### T SH, T7, CMP, LIPID #### [facility] [address] [address] [address] Concetta Milligan Cholesterol in LDL [Mass/Vol] 76.2 mg/dL Normal [facility] Comment on above: Performed By: #### T SH, T7, CMP, LIPID #### [facility] [address] [address] [address] Concetta Milligan Cholesterol.total/Ch olesterol in HDL [Mass ratio] 3.0 {ratio} Normal [facility] Comment on above: Performed By: #### T SH, T7, CMP, LIPID #### [facility] [address] [address] [address] Concetta Milligan HDL NORMAL > or = 60 mg/dl - LOW CARDIOVASCULAR RISK <40 mg/dl - HIGH CARDIOVASCULAR RISK Normal [facility] Comment on above: Performed By: #### T SH, T7, CMP, LIPID #### [facility] [address] [address] [address] Concetta Milligan LDL CALC NORMAL SEE BELOW Normal [facility] Comment on above: Result Comment: <100 mg/dl OPTIMAL 100 - 129 mg/dl NEAR OR ABOVE OPTIMAL 130 - 159 mg/dl BORDERLINE HIGH 160 - 189 mg/dl HIGH >190 mg/dl VERY HIGH Performed By: #### T SH, T7, CMP, LIPID #### [facility] [address] [address] [address] Concetta Milligan Triglyceride [Mass/Vol] 129 mg/dL Normal <=150 [facility] Comment on above: Performed By: #### T SH, T7, CMP, LIPID #### [facility] [address] [address] [address] Concetta Milligan VLDL CALC 25.8 mg/dL Normal [facility] Comment on above: Performed By: #### T SH, T7, CMP, LIPID #### [facility] [address] [address] [address] Concetta Milligan PROF 14(COMP METB)on 023 Albumin [Mass/Vol] 3.4 g/dL Normal 3.4-5.0 [facility] Comment on above: Performed By: #### T SH, T7, CMP, LIPID #### [facility] [address] [address] [address] Concetta Milligan Albumin/Globulin [Mass ratio] 0.9 {ratio} Normal [facility] Comment on above: Performed By: #### T SH, T7, CMP, LIPID #### [facility] [address] [place] [address] Dr. Concetta Milligan ALP [Catalytic activity/Vol] 128 U/L Critically high 46-116 [facility] Comment on above: Performed By: #### T SH, T7, CMP, LIPID #### [facility] [address] [place] [address] Dr. Concetta Milligan ALT [Catalytic activity/Vol] 12 U/L Critically low 14-59 [facility] Comment on above: Performed By: #### T SH, T7, CMP, LIPID #### [facility] [address] [address] [address] Concetta Milligan Anion gap [Moles/Vol] 11.2 mmol/L Normal [facility] Comment on above: Performed By: #### T SH, T7, CMP, LIPID #### [facility] [address] [place] [address] Dr. Concetta Milligan AST [Catalytic activity/Vol] 15 U/L Normal 15-37 [facility] Comment on above: Performed By: #### T SH, T7, CMP, LIPID #### [facility] [address] [place] [address] Dr. Concetta Milligan Bilirubin [Mass/Vol] 0.4 mg/dL Normal 0.2-1.0 [facility] Comment on above: Performed By: #### T SH, T7, CMP, LIPID #### [facility] [address] [address] [address] Concetta Milligan Calcium [Mass/Vol] 8.5 mg/dL Normal 8.5-10.1 [facility] Comment on above: Performed By: #### T SH, T7, CMP, LIPID #### [facility] [address] [place] [address] Dr. Concetta Milligan Chloride [Moles/Vol] 103 mmol/L Normal 98-107 [facility] Comment on above: Performed By: #### T SH, T7, CMP, LIPID #### [facility] [address] [place] [address] Dr. Concetta Milligan CO2 [Moles/Vol] 29.9 mmol/L Normal 21.0-32.0 [facility] Comment on above: Performed By: #### T SH, T7, CMP, LIPID #### [facility] [address] [place] [address] Dr. Concetta Milligan Creatinine [Mass/Vol] 0.77 mg/dL Normal 0.55-1.02 [facility] Comment on above: Performed By: #### T SH, T7, CMP, LIPID #### [facility] [address] [place] [address] Dr. Concetta Milligan EGFR-AF MALAGASY >60 Normal >=60 [facility] Comment on above: Performed By: #### T SH, T7, CMP, LIPID #### [facility] [address] [place] [address] Dr. Concetta Milligan EGFR-NON AF MALAGASY >60 Normal >=60 [facility] Comment on above: Performed By: #### T SH, T7, CMP, LIPID #### [facility] [address] [place] [address] Dr. Concetta Milligan Globulin (S) [Mass/Vol] 3.8 g/dL Normal [facility] Comment on above: Performed By: #### T SH, T7, CMP, LIPID #### [facility] [address] [place] [address] Dr. Concetta Milligan Glucose [Mass/Vol] 116 mg/dL Critically high 74-106 [facility] Comment on above: Performed By: #### T SH, T7, CMP, LIPID #### [facility] [address] [address] [address] Concetta Milligan Potassium [Moles/Vol] 3.1 mmol/L Critically low 3.5-5.1 [facility] Comment on above: Performed By: #### T SH, T7, CMP, LIPID #### [facility] [address] [address] [address] Concetta Milligan Protein [Mass/Vol] 7.2 g/dL Normal 6.4-8.2 [facility] Comment on above: Performed By: #### T SH, T7, CMP, LIPID #### [facility] [address] [place] [address] Dr. Concetta Milligan Sodium [Moles/Vol] 141 mmol/L Normal 136-145 [facility] Comment on above: Performed By: #### T SH, T7, CMP, LIPID #### [facility] [address] [address] [address] Concetta Milligan Urea nitrogen [Mass/Vol] 14.0 mg/dL Normal 7.0-18.0 [facility] Comment on above: Performed By: #### T SH, T7, CMP, LIPID #### [facility] [address] [place] [address] Dr. Concetta Milligan Urea nitrogen/Creatinine [Mass ratio] 18.2 mg/mg Normal [facility] Comment on above: Performed By: #### T SH, T7, CMP, LIPID #### [facility] [address] [address] [address] Concetta Milligan TSHon 10-12-2022 TSH 1.144 uIU/mL Normal 0.358-3.740 [facility] Comment on above: Performed By: #### T SH, T7, CMP, LIPID #### [facility] [address] [place] [address] Dr. Concetta Milligan Coding Summary.on 03-15-2020 Coding Summary. CODING DATE: 03/15/2020 FINAL [facility] STATUS: Home (Routine DC) PAYOR: Medicare [...] Ivette Verma Date Saved: 03/15/2020 07:39 am Normal [facility] Coding Summary.on 03-09-2020 Coding Summary. CODING DATE: 03/09/2020 FINAL [facility] STATUS: Home (Routine DC) PAYOR: Medicare [...] Marah Carmona Date Saved: 03/09/2020 10:40 am [facility] Consent for Treatmenton 02-21 Consent for Treatment [id number] #1.00CD:127 Normal [facility] Discharge Instructionson Discharge Instructions [id number] 0#1.00CD:127 Normal [facility] History and Physicalon 03-08 History and Physical [id number] 1#1.00CD:127 Normal [facility] Inpatient Patient Summaryon 03-08-2020 Inpatient Patient Summary [address] [id number] Clinical Summary Person Information Name: DONNY HODGE Age: 69 Years : 1950 Sex: Female PCP: NIURKA BEGUM MD Marital Status: Race: White Ethnicity: Non- or Language: Malay Visit Id: Visit Reason: GROSS HEMATURIA Speciality: Acuity: Enc Type: Outpatient Med Service: Surgery Arrival: 03/08/2020 12:23:46 Discharge: Dispo Type: Address: [address] [place] [address] 9 [facility] [id number] Provider Notes: Diagnosis: Colovesical fistula; Gross hematuria [...] MD Follow up: With: Address: When: Shorty Lizarraga, [facility] [address], [facility] [place] [address] [id number] Business (1) , only if needed Patient Education Information: Diverticulitis Normal [facility] IntraOperative Documentson 0 03-08-2020 IntraOperative Documents [id number] 8#1.00CD:127 Normal [facility] IntraOperative Documents [id number] 5#1.00CD:127 Normal [facility] Main OR Intraoperative Recor don 03-08-2020 Main OR Intraoperative Record IntraOp Document Type FTURO Summary Primary Physician: Shorty Stark MD Finalized Date/Time: 03/08/20 12:52:53 Pt. Name: DONNY HODGE Emily Nix/Sex: 1950 Female Med Rec #: [id number] Physician: Shorty Stark MD Financial #: [id number] Pt. Type: O Room/Bed: / Admit/Disch: 03/08/20 12:23:46 - Institution: Case Times FTURO Entry 1 Patient Times In Room 03/08/20 12:43:00 Out Room 03/08/20 12:57:00 Procedure Times Start 03/08/20 12:46:00 Stop 03/08/20 12:52:00 Anesthesia Times Last Modified By: Pascual QUESADA, JOE, Tammie 03/08/20 12:50:46 Case Attendance FTURO Entry 1 Entry 2 Entry 3 Case Attendee Mi DAILY, Shorty Garner RN, CNOR, Angelita IQBAL, Vida Cho Role Performed Surgeon - Primary Apprentice Pattern Maker - Primary Scrub - Primary Time In 03/08/20 12:43:00 03/08/20 12:43:00 03/08/20 12:43:00 Time Out 03/08/20 12:57:00 03/08/20 12:57:00 03/08/20 12:57:00 Procedure CYSTOSCOPY LOCAL(.) CYSTOSCOPY LOCAL(.) CYSTOSCOPY LOCAL(.) Comments Last Modified By: Pascual RN, CNOR, Pascual RN, JOANOR, Pascual QUESADA, JOANOR, Tammie 03/08/20 Tammie 03/08/20 Tammie 03/08/20 12:50:47 [...] Stark MD, Verified (If Participants Pascual QUESADA, JOE, Applicable) Angelita Cho CONVENTIONAL MORTGAGE UNDERWRITER, Vida Time Out Complete 03/08/20 12:45:00 Allergies [...] JOE Garner RN, Ruthann 03/08/20 12:52 Normal [facility] Main OR Preoperative Recordo n 03-08-2020 Main OR Preoperative Record Holding Area Document Type FTURO Summary Primary Physician: Shorty Stark MD Finalized Date/Time: 03/08/20 12:50:09 Pt. Name: DONNY HODGE /Sex: 1950 Female Med Rec #: [id number] Physician: Shorty Stark MD Financial #: [id number] Pt. Type: O Room/Bed: / Admit/Disch: 03/08/20 [...] Complaints of Pain: No Skin Integrity Intact, Shorter, Warm, & Dry Vitals - EU Blood Pressure Pulse 76 Respirations 20 SPO2 Blood Pressure 100/66 Pulse Respirations SPO2 RN Reviewed Yes Last Modified By: JOE Garner RN, Ruthann 03/08/20 12:50:07 General Comments: temp 36.5 Finalized By: Pascual QUESADA, Tammie DIAZ Document Signatures Signed By: Rosa Johnson LPN 03/08/20 12:35 Rosa Johnson LPN 03/08/20 12:35 JOE Garner RN, Ruthann 03/08/20 12:50 Normal [facility] Operative Reporton 0 Operative Report Patient: DONNY HODGE Age: 69 years Sex: Female : 1950 Associated Diagnoses: None Author: Shorty Stark MD Procedure Operative Information Details: Date/ Time: 03/08/2020 12:57:00. Pre-Op Dx: Gross Hematuria - R31.0, possible colovesical fistula. Post-Op Dx: resolved gross hematuria, no signs of colovesical fistula. Anesthesia Type: Local. Procedure: Local Cystoscopy. Risks/Benefits/Infor med Consent: Surgical risks, benefits, details of the [...] Discharge: patient wished to followup as needed.. [facility] Comment on above: Result Comment: Elec tronically Signed By: Mi DAILY, Shorty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
== END 2024-10-12 11:30 | disposition home or self-care (01) ==
LOC: EC 11:29
PROVIDERS: PCP Nurse Practitioner Family; Visit Provider Orthopaedic Surgery
DX: S52.552D Other extraarticular fracture of lower end of left radius, subsequent encounter for closed fracture with routine healing (principal); S52.692D Other fracture of lower end of left ulna, subsequent encounter for closed fracture with routine healing
CPT/HCPCS: 73110